=== PATIENT | female | born 1945 | race African-American/Black ===

== ENCOUNTER 2019-09-24 14:15 | Inpatient (IN) | payer MEDICARE, MEDICAID ==
[~2019-09-24] VITALS: Ht 165.1 cm; Wt 59.0 kg
[2019-09-24] VITALS (17 sets, daily range): BP systolic 92–196; BP diastolic 24–125
[2019-09-24] MEDS ORDERED: DILTIAZEM HCL 5MG/ML 5ML VIAL IV ONE ×2 (15:00→18:30)
[2019-09-24 15:18] LABS: HEMATOCRIT. 45.8 % (36.0-48.0); HEMOGLOBIN. 16.1 g/dL (12.0-16.0); MEAN CORPUSCULAR HEMOGLOBIN 30.5 pg (28.0-32.0); MEAN PLATELET VOLUME 7.8 fl (7.4-10.4); PLATELET 341 x1000/uL (130-400); RED BLOOD CELL COUNT 5.26 mill/uL (4.2-5.4); RED CELL DISTRIBUTION WIDTH 15.9 % (11.6-14.6)
[2019-09-24 15:25] LABS: CHLORIDE 101 mEq/L (98-107)
[2019-09-24 15:31] LABS: INR 1.1; PARTIAL THROMBOPLASTIN TIME 23.8 sec (23.4-31.0); PROTHROMBIN TIME 11.6 sec (9.6-11.0)
[2019-09-24 15:42] LABS: CLARITY URINE CLEAR (CLEAR); COLOR URINE YELLOW (YELLOW); KETONES URINE 1+ (NEGATIVE); LEUKOCYTE ESTERASE URINE NEGATIVE (NEGATIVE); NITRITE URINE NEGATIVE (NEGATIVE); OCCULT BLOOD URINE 3+ (NEGATIVE); PH URINE 5.5 (4.5-8.0); PROTEIN URINE 4+ (NEGATIVE); SPECIFIC GRAVITY URINE 1.034 (1.005-1.030)
[2019-09-24] MEDS ORDERED: IOHEXOL-350 100 ML BOTTLE ONE (16:22)
[2019-09-24] MEDS ORDERED: SODIUM CHLORIDE 0.9% 1000ML BAG (SEPSIS BOLUS) IV ONE (16:30)
[2019-09-24] MEDS ORDERED: PIPERACILLIN/TAZ 3.375G PREMIX 50 ML IV ONE (16:30)
[2019-09-24] MEDS ORDERED: VANCOMYCIN 1 G PREMIX 200 ML IV ONE (16:30)
[2019-09-24] MEDS ORDERED: LEVETIRACETAM 500MG PREMIX 100 ML IV ONE (17:00)
[2019-09-24] MEDS ORDERED: NICARDIPINE 100 MG in SODIUM CHLORIDE 0.9% 60 ML IV STA (17:20)
[2019-09-24] MEDS ORDERED: MANNITOL 12.5G (25%) VIAL 50ML IV ONE (17:30)
[2019-09-24] MEDS ORDERED: DEXAMETHASONE 10 MG/ML VIAL IV ONE (17:30)
[2019-09-24 17:53] LABS: PLATELET ESTIMATE NORMAL
[2019-09-24] MEDS ORDERED: NICARDIPINE 100 MG in SODIUM CHLORIDE 0.9% 60 ML IV PRN (18:45)
[2019-09-24] MEDS ORDERED: LORAZEPAM 2MG/ML CPJ IV PRN (19:30)
[2019-09-24] MEDS ORDERED: IPRATROPIUM/ALBUTEROL 0.5-3(2.5)MG/3ML NEB HHN PRN (19:30)
[2019-09-24] MEDS ORDERED: ACETAMINOPHEN 650MG SUPP PR PRN (19:30)
[2019-09-24] MEDS ORDERED: ONDANSETRON HCL 4MG/2ML INJ IV PRN (19:30)
[2019-09-24] MEDS: NICARDIPINE 100 MG in SODIUM CHLORIDE 0.9% 60 ML IV PRN (20:25)
[2019-09-24] MEDS: DEXT 5%/LACTATED RINGERS 1,000 ML IV SCH (20:27)
[2019-09-24] MEDS: MORPHINE SULFATE 2 MG/ML CPJ (NOT FOR IM USE) IV PRN (20:30)
[2019-09-24] MEDS ORDERED: DEXTROSE 50% WATER 50ML SYRINGE IV PRN (20:45)
[2019-09-24] MEDS: BLOOD SUGAR DIAGNOSTIC STRIP TEST SCH (21:05)
[2019-09-24] MEDS: INSULIN LISPRO 100 UNITS/ML SUBCUT SCH (21:09)
[2019-09-24] MEDS: DILTIAZEM HCL 125 MG in DEXT 5% WATER 100 ML IV PRN (21:59)
[2019-09-24] MEDS ORDERED: PIPERACILLIN/TAZOBACTAM 3.375 G in DEXT 5% WATER 100 ML IV SCH (23:00)
[2019-09-24 23:12] LABS: *AMPHETAMINES SCREEN URINE NEGATIVE (NEGATIVE); *BARBITURATES SCREEN URINE NEGATIVE (NEGATIVE); *BENZODIAZEPINES SCREEN URINE NEGATIVE (NEGATIVE); *COCAINE SCREEN URINE NEGATIVE (NEGATIVE); METHADONE URINE SCREEN NEGATIVE (NEGATIVE); OPIATES URINE SCREEN NEGATIVE (NEGATIVE); PHENCYCLIDINE URINE SCREEN NEGATIVE (NEGATIVE)
[2019-09-24 23:13] LABS: CANNABINOID URINE SCREEN NEGATIVE (NEGATIVE)
[2019-09-25] VITALS (94 sets, daily range): BP systolic 59–148; BP diastolic 16–113
[2019-09-25] MEDS ORDERED: VANCOMYCIN 1,750 MG in DEXT 5% WATER 250 ML IV NR ×2
[2019-09-25] MEDS: DEXAMETHASONE 4MG/ML 1ML VIAL IV SCH ×5 (00:33→23:51)
[2019-09-25 05:28] LABS: HEMATOCRIT. 40.9 % (36.0-48.0); HEMOGLOBIN. 14.3 g/dL (12.0-16.0); MEAN CORPUSCULAR HEMOGLOBIN 30.7 pg (28.0-32.0); MEAN CORPUSCULAR VOLUME 88.2 fL (81.0-99.0); MEAN PLATELET VOLUME 8.3 fl (7.4-10.4); PLATELET 251 x1000/uL (130-400); RED BLOOD CELL COUNT 4.64 mill/uL (4.2-5.4); RED CELL DISTRIBUTION WIDTH 16.1 % (11.6-14.6)
[2019-09-25] MEDS: PIPERACILLIN/TAZOBACTAM 3.375 G in DEXT 5% WATER 100 ML IV SCH ×4 (05:30→23:51)
[2019-09-25 05:39] LABS: CHLORIDE 104 mEq/L (98-107)
[2019-09-25 05:55] LABS: CREATINE KINASE MB FRACTION 3.9 ng/mL (0.5-3.6)
[2019-09-25] MEDS: BLOOD SUGAR DIAGNOSTIC STRIP TEST SCH ×4 (06:15→21:06)
[2019-09-25] MEDS: INSULIN LISPRO 100 UNITS/ML SUBCUT SCH ×4 (06:22→21:06)
[2019-09-25 08:22] LABS: PLATELET ESTIMATE NORMAL
[2019-09-25] MEDS: DILTIAZEM HCL 125 MG in DEXT 5% WATER 100 ML IV PRN ×2 (08:25→17:30)
[2019-09-25] MEDS ORDERED: LEVETIRACETAM 500MG PREMIX 100 ML IV SCH (09:00)
[2019-09-25] MEDS ORDERED: CALC-1280 PO (10:07)
[2019-09-25] MEDS ORDERED: METH2.5T PO (10:07)
[2019-09-25] MEDS ORDERED: ATOR10TA69 MT (10:07)
[2019-09-25] MEDS ORDERED: METO-385 MT (10:07)
[2019-09-25] MEDS ORDERED: METF-414 MT (10:07)
[2019-09-25] MEDS ORDERED: DILT240C94 MT (10:07)
[2019-09-25] MEDS ORDERED: APIX2.5T MT (10:07)
[2019-09-25] MEDS ORDERED: BENA40TA9 MT (10:07)
[2019-09-25] MEDS ORDERED: VANCOMYCIN 750 MG PREMIX 150 ML IV SCH (12:00)
[2019-09-25] MEDS ORDERED: VANCOMYCIN 750 MG in DEXT 5% WATER 250 ML IV SCH (12:00)
[2019-09-25] MEDS ORDERED: HUMAN PROTHROMBIN COMPLX (PCC) 500 UNITS VIAL IV SCH (13:00)
[2019-09-25] MEDS ORDERED: BENZONATATE 100MG CAPSULE PO PRN (13:00)
[2019-09-25] MEDS: VANCOMYCIN 1 G PREMIX 200 ML IV SCH (17:52)
[2019-09-25] MEDS: DEXT 5%/LACTATED RINGERS 1,000 ML IV SCH (17:53)
[2019-09-25] MEDS: LEVETIRACETAM 500MG PREMIX 100 ML IV SCH (21:48)
[2019-09-26] VITALS (96 sets, daily range): BP systolic 87–153; BP diastolic 35–103
[2019-09-26] MEDS: DILTIAZEM HCL 125 MG in DEXT 5% WATER 100 ML IV PRN ×2 (03:38→15:08)
[2019-09-26] MEDS: DEXAMETHASONE 4MG/ML 1ML VIAL IV SCH ×2 (05:07→12:25)
[2019-09-26] MEDS: PIPERACILLIN/TAZOBACTAM 3.375 G in DEXT 5% WATER 100 ML IV SCH ×4 (05:07→23:15)
[2019-09-26 05:33] LABS: HEMATOCRIT. 36.3 % (36.0-48.0); HEMOGLOBIN. 12.8 g/dL (12.0-16.0); MEAN CORPUSCULAR HEMOGLOBIN 30.7 pg (28.0-32.0); MEAN CORPUSCULAR VOLUME 87.3 fL (81.0-99.0); PLATELET 236 x1000/uL (130-400); RED BLOOD CELL COUNT 4.16 mill/uL (4.2-5.4); RED CELL DISTRIBUTION WIDTH 15.9 % (11.6-14.6)
[2019-09-26 05:43] LABS: CHLORIDE 105 mEq/L (98-107)
[2019-09-26 06:12] LABS: INR 0.9; PROTHROMBIN TIME 10.1 sec (9.6-11.0)
[2019-09-26] MEDS: BLOOD SUGAR DIAGNOSTIC STRIP TEST SCH ×4 (06:27→20:59)
[2019-09-26] MEDS: INSULIN LISPRO 100 UNITS/ML SUBCUT SCH ×4 (06:27→20:59)
[2019-09-26] MEDS: MORPHINE SULFATE 2 MG/ML CPJ (NOT FOR IM USE) IV PRN (06:27)
[2019-09-26 07:24] LABS: PLATELET ESTIMATE NORMAL
[2019-09-26] MEDS: LEVETIRACETAM 500MG PREMIX 100 ML IV SCH ×2 (07:56→20:59)
[2019-09-26] MEDS: VANCOMYCIN 1 G PREMIX 200 ML IV SCH (12:25)
[2019-09-26] MEDS: DEXT 5%/LACTATED RINGERS 1,000 ML IV SCH ×2 (12:26→20:22)
[2019-09-26] MEDS: INSULIN GLARGINE UD 100 UNITS/ML SYR SUBCUT SCH (21:00)
[2019-09-27] VITALS (99 sets, daily range): BP systolic 75–172; BP diastolic 20–126
[2019-09-27] MEDS: PIPERACILLIN/TAZOBACTAM 3.375 G in DEXT 5% WATER 100 ML IV SCH ×4 (05:01→23:48)
[2019-09-27] MEDS: DILTIAZEM HCL 125 MG in DEXT 5% WATER 100 ML IV PRN ×2 (05:02→15:46)
[2019-09-27 05:13] LABS: HEMATOCRIT. 38.3 % (36.0-48.0); HEMOGLOBIN. 13.5 g/dL (12.0-16.0); MEAN CORPUSCULAR HEMOGLOBIN 30.5 pg (28.0-32.0); MEAN CORPUSCULAR VOLUME 86.4 fL (81.0-99.0); MEAN PLATELET VOLUME 7.8 fl (7.4-10.4); PLATELET 269 x1000/uL (130-400); RED BLOOD CELL COUNT 4.43 mill/uL (4.2-5.4); RED CELL DISTRIBUTION WIDTH 15.8 % (11.6-14.6)
[2019-09-27 05:14] LABS: CHLORIDE 108 mEq/L (98-107)
[2019-09-27] MEDS: INSULIN LISPRO 100 UNITS/ML SUBCUT SCH ×4 (06:00→21:24)
[2019-09-27] MEDS: VANCOMYCIN 1 G PREMIX 200 ML IV SCH (06:00)
[2019-09-27] MEDS: BLOOD SUGAR DIAGNOSTIC STRIP TEST SCH ×4 (06:00→21:19)
[2019-09-27 07:12] LABS: PLATELET ESTIMATE NORMAL
[2019-09-27] MEDS: LEVETIRACETAM 500MG PREMIX 100 ML IV SCH ×2 (08:34→21:22)
[2019-09-27] MEDS ORDERED: DORZ10DR9 BOTHEYE (08:51)
[2019-09-27] MEDS ORDERED: BRIN8DRO BOTHEYE (08:51)
[2019-09-27] MEDS ORDERED: LATA2.5D2 BOTHEYE (08:51)
[2019-09-27] MEDS: INSULIN GLARGINE UD 100 UNITS/ML SYR SUBCUT SCH ×2 (10:43→21:25)
[2019-09-27] MEDS ORDERED: PRED5DRO22 LEFTEYE (13:44)
[2019-09-27] MEDS ORDERED: POTASSIUM CHLORIDE INJ 40 MEQ in DEXT 5% WATER 250 ML IV NR (14:00)
[2019-09-27] MEDS: PREDNISOLONE ACETATE 1% OPHTH DROPS 5ML LEFTEYE SCH (19:47)
[2019-09-27] MEDS ORDERED: METOPROLOL TARTRATE 25MG TABLET ONE (21:11)
[2019-09-27] MEDS: LATANOPROST 0.005% OPHTH DROPS 2.5ML BOTHEYE SCH (21:21)
[2019-09-27] MEDS: DORZOLAM/TIMOLOL 2.23/0.68% OPHTH DROPS 10ML BOTHEYE SCH (21:21)
[2019-09-27] MEDS: BRIMONIDINE 0.2% OPHTH DROPS 5ML EACHEYE SCH (21:21)
[2019-09-27] MEDS: NICARDIPINE 100 MG in SODIUM CHLORIDE 0.9% 60 ML IV PRN (21:26)
[2019-09-27] MEDS: DEXT 5%/LACTATED RINGERS 1,000 ML IV SCH (21:42)
[2019-09-27] MEDS: VANCOMYCIN 1,000 MG in DEXT 5% WATER 250 ML IV SCH (23:49)
[2019-09-28] VITALS (95 sets, daily range): BP systolic 107–155; BP diastolic 42–87
[2019-09-28] MEDS: DILTIAZEM HCL 125 MG in DEXT 5% WATER 100 ML IV PRN (03:44)
[2019-09-28] MEDS: PIPERACILLIN/TAZOBACTAM 3.375 G in DEXT 5% WATER 100 ML IV SCH ×3 (05:03→18:43)
[2019-09-28] MEDS: BRIMONIDINE 0.2% OPHTH DROPS 5ML EACHEYE SCH ×3 (05:03→22:44)
[2019-09-28 05:43] LABS: CHLORIDE 105 mEq/L (98-107)
[2019-09-28] MEDS: BLOOD SUGAR DIAGNOSTIC STRIP TEST SCH ×4 (06:00→21:01)
[2019-09-28] MEDS: INSULIN LISPRO 100 UNITS/ML SUBCUT SCH ×4 (06:01→21:02)
[2019-09-28] MEDS: LEVETIRACETAM 500MG PREMIX 100 ML IV SCH ×2 (09:05→21:00)
[2019-09-28] MEDS: PREDNISOLONE ACETATE 1% OPHTH DROPS 5ML LEFTEYE SCH ×2 (09:06→17:00)
[2019-09-28] MEDS: INSULIN GLARGINE UD 100 UNITS/ML SYR SUBCUT SCH ×2 (09:06→22:45)
[2019-09-28] MEDS: DORZOLAM/TIMOLOL 2.23/0.68% OPHTH DROPS 10ML BOTHEYE SCH ×2 (09:06→21:00)
[2019-09-28] MEDS ORDERED: POTASSIUM CHLORIDE INJ 40 MEQ in DEXT 5% WATER 250 ML IV NR (10:30)
[2019-09-28] MEDS: VANCOMYCIN 1,000 MG in DEXT 5% WATER 250 ML IV SCH ×2 (18:00→19:49)
[2019-09-28] MEDS: NICARDIPINE 100 MG in SODIUM CHLORIDE 0.9% 60 ML IV PRN (18:57)
[2019-09-28] MEDS: LATANOPROST 0.005% OPHTH DROPS 2.5ML BOTHEYE SCH (21:00)
[2019-09-29] VITALS (93 sets, daily range): BP systolic 103–169; BP diastolic 43–92
[2019-09-29 00:57] LABS: HEPATITIS B SURFACE ANTIGEN NEGATIVE
[2019-09-29] MEDS: PIPERACILLIN/TAZOBACTAM 3.375 G in DEXT 5% WATER 100 ML IV SCH ×4 (00:59→18:21)
[2019-09-29] MEDS: DEXT 5%/LACTATED RINGERS 1,000 ML IV SCH (01:00)
[2019-09-29 05:51] LABS: HEMATOCRIT. 45.1 % (36.0-48.0); HEMOGLOBIN. 15.8 g/dL (12.0-16.0); MEAN CORPUSCULAR HEMOGLOBIN 30.2 pg (28.0-32.0); MEAN PLATELET VOLUME 7.6 fl (7.4-10.4); PLATELET 306 x1000/uL (130-400); RED BLOOD CELL COUNT 5.24 mill/uL (4.2-5.4); RED CELL DISTRIBUTION WIDTH 15.2 % (11.6-14.6)
[2019-09-29 05:54] LABS: CHLORIDE 105 mEq/L (98-107)
[2019-09-29] MEDS: NICARDIPINE 100 MG in SODIUM CHLORIDE 0.9% 60 ML IV PRN ×2 (06:32→14:08)
[2019-09-29] MEDS: INSULIN LISPRO 100 UNITS/ML SUBCUT SCH ×4 (06:33→22:42)
[2019-09-29] MEDS: BLOOD SUGAR DIAGNOSTIC STRIP TEST SCH ×4 (06:33→21:00)
[2019-09-29] MEDS: BRIMONIDINE 0.2% OPHTH DROPS 5ML EACHEYE SCH ×3 (06:34→22:42)
[2019-09-29] MEDS: LEVETIRACETAM 500MG PREMIX 100 ML IV SCH ×2 (08:22→22:41)
[2019-09-29] MEDS: PREDNISOLONE ACETATE 1% OPHTH DROPS 5ML LEFTEYE SCH ×2 (08:23→17:00)
[2019-09-29] MEDS: DORZOLAM/TIMOLOL 2.23/0.68% OPHTH DROPS 10ML BOTHEYE SCH ×2 (08:23→22:43)
[2019-09-29 08:56] LABS: PLATELET ESTIMATE NORMAL
[2019-09-29] MEDS: INSULIN GLARGINE UD 100 UNITS/ML SYR SUBCUT SCH ×2 (10:39→22:42)
[2019-09-29] MEDS: VANCOMYCIN 1,000 MG in DEXT 5% WATER 250 ML IV SCH (12:40)
[2019-09-29] MEDS: DILTIAZEM HCL 60MG TABLET NG SCH ×2 (14:57→22:46)
[2019-09-29] MEDS: LATANOPROST 0.005% OPHTH DROPS 2.5ML BOTHEYE SCH (22:43)
[2019-09-30] VITALS (89 sets, daily range): BP systolic 100–182; BP diastolic 36–103
[2019-09-30 05:22] LABS: BASOPHILS % 0.1 % (0.0-2.0); EOSINOPHILS % 1.2 % (0.0-5.0); HEMATOCRIT. 47.1 % (36.0-48.0); HEMOGLOBIN. 16.6 g/dL (12.0-16.0); LYMPHOCYTES % 7.3 % (20.0-50.0); MEAN CORPUSCULAR HEMOGLOBIN 30.1 pg (28.0-32.0); MEAN CORPUSCULAR VOLUME 85.4 fL (81.0-99.0); MEAN PLATELET VOLUME 7.5 fl (7.4-10.4); MONOCYTES % 10.6 % (2.0-8.0); NEUTROPHILS % 80.8 % (40.0-76.0); PLATELET 317 x1000/uL (130-400); RED BLOOD CELL COUNT 5.51 mill/uL (4.2-5.4); RED CELL DISTRIBUTION WIDTH 15.6 % (11.6-14.6)
[2019-09-30 05:47] LABS: CHLORIDE 105 mEq/L (98-107)
[2019-09-30] MEDS: BLOOD SUGAR DIAGNOSTIC STRIP TEST SCH ×4 (06:11→21:13)
[2019-09-30] MEDS: DEXT 5%/LACTATED RINGERS 1,000 ML IV SCH ×3 (06:18→23:40)
[2019-09-30] MEDS: BRIMONIDINE 0.2% OPHTH DROPS 5ML EACHEYE SCH ×3 (06:19→21:15)
[2019-09-30] MEDS: INSULIN LISPRO 100 UNITS/ML SUBCUT SCH ×4 (06:19→21:00)
[2019-09-30] MEDS: DILTIAZEM HCL 60MG TABLET NG SCH ×3 (06:20→21:15)
[2019-09-30] MEDS: PREDNISOLONE ACETATE 1% OPHTH DROPS 5ML LEFTEYE SCH ×2 (09:14→18:59)
[2019-09-30] MEDS: LEVETIRACETAM 500MG PREMIX 100 ML IV SCH ×2 (09:14→21:14)
[2019-09-30] MEDS: INSULIN GLARGINE UD 100 UNITS/ML SYR SUBCUT SCH ×2 (09:15→22:57)
[2019-09-30] MEDS: DORZOLAM/TIMOLOL 2.23/0.68% OPHTH DROPS 10ML BOTHEYE SCH ×2 (09:16→21:15)
[2019-09-30] MEDS: LATANOPROST 0.005% OPHTH DROPS 2.5ML BOTHEYE SCH (21:14)
[2019-09-30] MEDS: DILTIAZEM HCL 5MG/ML 5ML VIAL IV PRN (23:40)
[2019-10-01] VITALS (23 sets, daily range): BP systolic 108–149; BP diastolic 50–102
[2019-10-01 05:33] LABS: BASOPHILS % 0.2 % (0.0-2.0); EOSINOPHILS % 1.5 % (0.0-5.0); HEMATOCRIT. 45.9 % (36.0-48.0); HEMOGLOBIN. 16.2 g/dL (12.0-16.0); LYMPHOCYTES % 8.6 % (20.0-50.0); MEAN CORPUSCULAR HEMOGLOBIN 30.3 pg (28.0-32.0); MEAN CORPUSCULAR VOLUME 85.9 fL (81.0-99.0); MEAN PLATELET VOLUME 7.2 fl (7.4-10.4); MONOCYTES % 11.7 % (2.0-8.0); PLATELET 372 x1000/uL (130-400); RED BLOOD CELL COUNT 5.35 mill/uL (4.2-5.4); RED CELL DISTRIBUTION WIDTH 15.8 % (11.6-14.6)
[2019-10-01] MEDS: BLOOD SUGAR DIAGNOSTIC STRIP TEST SCH ×4 (05:43→21:49)
[2019-10-01] MEDS: BRIMONIDINE 0.2% OPHTH DROPS 5ML EACHEYE SCH ×3 (05:49→21:51)
[2019-10-01] MEDS: DILTIAZEM HCL 60MG TABLET NG SCH ×3 (05:49→21:35)
[2019-10-01 05:50] LABS: CHLORIDE 105 mEq/L (98-107)
[2019-10-01] MEDS: INSULIN LISPRO 100 UNITS/ML SUBCUT SCH ×4 (06:14→21:00)
[2019-10-01] MEDS ORDERED: BARIUM SULFATE 176 GM SUSP.RECON ONE (09:02)
[2019-10-01] MEDS: PREDNISOLONE ACETATE 1% OPHTH DROPS 5ML LEFTEYE SCH ×2 (10:16→19:06)
[2019-10-01] MEDS: DORZOLAM/TIMOLOL 2.23/0.68% OPHTH DROPS 10ML BOTHEYE SCH ×2 (10:16→21:50)
[2019-10-01] MEDS: LEVETIRACETAM 500MG PREMIX 100 ML IV SCH ×2 (10:17→21:33)
[2019-10-01] MEDS: INSULIN GLARGINE UD 100 UNITS/ML SYR SUBCUT SCH ×2 (10:31→21:52)
[2019-10-01] MEDS ORDERED: POTASSIUM CHLORIDE 20MEQ/PACKET PO NR (19:30)
[2019-10-01] MEDS: LATANOPROST 0.005% OPHTH DROPS 2.5ML BOTHEYE SCH (21:50)
[2019-10-01] MEDS: DEXT 5%/LACTATED RINGERS 1,000 ML IV SCH (21:53)
[2019-10-02] VITALS (18 sets, daily range): BP systolic 98–158; BP diastolic 46–103
[2019-10-02] MEDS: DILTIAZEM HCL 5MG/ML 5ML VIAL IV PRN ×2 (04:53→08:42)
[2019-10-02 05:57] LABS: CHLORIDE 108 mEq/L (98-107)
[2019-10-02 06:16] LABS: HEMATOCRIT. 42.3 % (36.0-48.0); HEMOGLOBIN. 14.9 g/dL (12.0-16.0); MEAN CORPUSCULAR HEMOGLOBIN 30.5 pg (28.0-32.0); MEAN CORPUSCULAR VOLUME 86.5 fL (81.0-99.0); MEAN PLATELET VOLUME 7.3 fl (7.4-10.4); PLATELET 382 x1000/uL (130-400); RED BLOOD CELL COUNT 4.89 mill/uL (4.2-5.4); RED CELL DISTRIBUTION WIDTH 15.3 % (11.6-14.6)
[2019-10-02] MEDS: DILTIAZEM HCL 60MG TABLET NG SCH (06:44)
[2019-10-02] MEDS: BRIMONIDINE 0.2% OPHTH DROPS 5ML EACHEYE SCH ×3 (06:44→20:40)
[2019-10-02] MEDS: BLOOD SUGAR DIAGNOSTIC STRIP TEST SCH ×4 (07:30→20:30)
[2019-10-02] MEDS: INSULIN LISPRO 100 UNITS/ML SUBCUT SCH ×4 (08:00→20:35)
[2019-10-02] MEDS: LEVETIRACETAM 500MG PREMIX 100 ML IV SCH ×2 (08:49→20:30)
[2019-10-02] MEDS: DORZOLAM/TIMOLOL 2.23/0.68% OPHTH DROPS 10ML BOTHEYE SCH ×2 (08:50→20:39)
[2019-10-02] MEDS: PREDNISOLONE ACETATE 1% OPHTH DROPS 5ML LEFTEYE SCH ×2 (08:50→17:23)
[2019-10-02 09:00] LABS: PLATELET ESTIMATE NORMAL
[2019-10-02] MEDS: INSULIN GLARGINE UD 100 UNITS/ML SYR SUBCUT SCH ×2 (10:52→20:57)
[2019-10-02] MEDS ORDERED: LIDOCAINE HCL 1% 20ML VIAL (Pyxis) INJ ONE (12:59)
[2019-10-02] MEDS: DILTIAZEM HCL 90MG TABLET NG SCH ×2 (14:13→20:56)
[2019-10-02] MEDS: LATANOPROST 0.005% OPHTH DROPS 2.5ML BOTHEYE SCH (20:39)
[2019-10-03] VITALS (13 sets, daily range): BP systolic 120–153; BP diastolic 62–88
[2019-10-03] MEDS: DEXT 5%/LACTATED RINGERS 1,000 ML IV SCH (02:27)
[2019-10-03] MEDS: BRIMONIDINE 0.2% OPHTH DROPS 5ML EACHEYE SCH ×3 (05:02→21:44)
[2019-10-03] MEDS: DILTIAZEM HCL 90MG TABLET NG SCH ×3 (05:03→17:46)
[2019-10-03 06:44] LABS: CHLORIDE 108 mEq/L (98-107)
[2019-10-03 07:19] LABS: BASOPHILS % 0.3 % (0.0-2.0); EOSINOPHILS % 2.4 % (0.0-5.0); HEMATOCRIT. 43.3 % (36.0-48.0); HEMOGLOBIN. 15.2 g/dL (12.0-16.0); LYMPHOCYTES % 11.1 % (20.0-50.0); MEAN CORPUSCULAR HEMOGLOBIN 30.4 pg (28.0-32.0); MEAN CORPUSCULAR VOLUME 86.2 fL (81.0-99.0); MEAN PLATELET VOLUME 7.8 fl (7.4-10.4); MONOCYTES % 12.7 % (2.0-8.0); NEUTROPHILS % 73.5 % (40.0-76.0); PLATELET 324 x1000/uL (130-400); RED BLOOD CELL COUNT 5.02 mill/uL (4.2-5.4); RED CELL DISTRIBUTION WIDTH 15.7 % (11.6-14.6)
[2019-10-03] MEDS: BLOOD SUGAR DIAGNOSTIC STRIP TEST SCH ×4 (07:59→21:45)
[2019-10-03] MEDS: INSULIN LISPRO 100 UNITS/ML SUBCUT SCH ×4 (08:00→21:59)
[2019-10-03] MEDS: LEVETIRACETAM 500MG PREMIX 100 ML IV SCH ×2 (08:11→21:52)
[2019-10-03] MEDS: PREDNISOLONE ACETATE 1% OPHTH DROPS 5ML LEFTEYE SCH ×2 (08:12→17:46)
[2019-10-03] MEDS: DORZOLAM/TIMOLOL 2.23/0.68% OPHTH DROPS 10ML BOTHEYE SCH ×2 (08:12→21:44)
[2019-10-03] MEDS ORDERED: DILTIAZEM HCL 30MG TABLET PO NR (09:28)
[2019-10-03] MEDS: INSULIN GLARGINE UD 100 UNITS/ML SYR SUBCUT SCH ×2 (09:55→21:46)
[2019-10-03] MEDS: ACETAMINOPHEN 325MG TABLET PO PRN (12:42)
[2019-10-03] MEDS ORDERED: METOPROLOL TARTRATE 25MG TABLET PO SCH (21:00)
[2019-10-03] MEDS: LATANOPROST 0.005% OPHTH DROPS 2.5ML BOTHEYE SCH (21:44)
[2019-10-04] VITALS (12 sets, daily range): BP systolic 116–172; BP diastolic 59–134
[2019-10-04] MEDS: DEXT 5%/LACTATED RINGERS 1,000 ML IV SCH ×2 (01:18→21:38)
[2019-10-04] MEDS: DILTIAZEM HCL 90MG TABLET NG SCH ×4 (01:29→17:26)
[2019-10-04] MEDS: BRIMONIDINE 0.2% OPHTH DROPS 5ML EACHEYE SCH ×3 (05:22→21:39)
[2019-10-04 06:39] LABS: CHLORIDE 108 mEq/L (98-107)
[2019-10-04 07:28] LABS: BASOPHILS % 0.2 % (0.0-2.0); HEMATOCRIT. 35.8 % (36.0-48.0); HEMOGLOBIN. 12.8 g/dL (12.0-16.0); LYMPHOCYTES % 8.4 % (20.0-50.0); MEAN CORPUSCULAR HEMOGLOBIN 30.5 pg (28.0-32.0); MEAN CORPUSCULAR VOLUME 85.2 fL (81.0-99.0); MEAN PLATELET VOLUME 7.8 fl (7.4-10.4); MONOCYTES % 11.4 % (2.0-8.0); PLATELET 294 x1000/uL (130-400); RED CELL DISTRIBUTION WIDTH 15.9 % (11.6-14.6)
[2019-10-04] MEDS: INSULIN LISPRO 100 UNITS/ML SUBCUT SCH ×4 (08:00→21:41)
[2019-10-04] MEDS: DORZOLAM/TIMOLOL 2.23/0.68% OPHTH DROPS 10ML BOTHEYE SCH ×2 (09:00→21:40)
[2019-10-04] MEDS: LEVETIRACETAM 500MG PREMIX 100 ML IV SCH ×2 (09:18→21:38)
[2019-10-04] MEDS: METOPROLOL TARTRATE 25MG TABLET PO SCH ×2 (09:20→21:37)
[2019-10-04] MEDS: PREDNISOLONE ACETATE 1% OPHTH DROPS 5ML LEFTEYE SCH ×2 (09:21→18:16)
[2019-10-04] MEDS: INSULIN GLARGINE UD 100 UNITS/ML SYR SUBCUT SCH ×2 (09:22→21:42)
[2019-10-04] MEDS: BLOOD SUGAR DIAGNOSTIC STRIP TEST SCH ×4 (09:23→21:38)
[2019-10-04] MEDS: HYDRALAZINE HCL 25MG TABLET PO SCH ×2 (14:00→21:37)
[2019-10-04] MEDS: LATANOPROST 0.005% OPHTH DROPS 2.5ML BOTHEYE SCH (21:39)
[2019-10-05] VITALS (13 sets, daily range): BP systolic 94–137; BP diastolic 50–86
[2019-10-05] MEDS: DILTIAZEM HCL 90MG TABLET NG SCH ×4 (00:04→18:24)
[2019-10-05] MEDS: HYDRALAZINE HCL 25MG TABLET PO SCH ×2 (05:46→14:08)
[2019-10-05] MEDS: BRIMONIDINE 0.2% OPHTH DROPS 5ML EACHEYE SCH ×2 (05:46→14:08)
[2019-10-05 07:35] LABS: BASOPHILS % 0.2 % (0.0-2.0); HEMATOCRIT. 33.9 % (36.0-48.0); HEMOGLOBIN. 12.1 g/dL (12.0-16.0); LYMPHOCYTES % 8.4 % (20.0-50.0); MEAN CORPUSCULAR HEMOGLOBIN 30.5 pg (28.0-32.0); MEAN CORPUSCULAR VOLUME 85.4 fL (81.0-99.0); MEAN PLATELET VOLUME 7.3 fl (7.4-10.4); MONOCYTES % 9.4 % (2.0-8.0); PLATELET 327 x1000/uL (130-400); RED BLOOD CELL COUNT 3.97 mill/uL (4.2-5.4); RED CELL DISTRIBUTION WIDTH 15.5 % (11.6-14.6)
[2019-10-05 07:58] LABS: CHLORIDE 109 mEq/L (98-107)
[2019-10-05] MEDS: BLOOD SUGAR DIAGNOSTIC STRIP TEST SCH ×4 (08:00→20:03)
[2019-10-05] MEDS: LEVETIRACETAM 500MG PREMIX 100 ML IV SCH ×2 (09:24→20:11)
[2019-10-05] MEDS: DORZOLAM/TIMOLOL 2.23/0.68% OPHTH DROPS 10ML BOTHEYE SCH ×2 (09:27→20:15)
[2019-10-05] MEDS: PREDNISOLONE ACETATE 1% OPHTH DROPS 5ML LEFTEYE SCH ×2 (09:27→18:26)
[2019-10-05] MEDS: INSULIN GLARGINE UD 100 UNITS/ML SYR SUBCUT SCH (09:43)
[2019-10-05] MEDS: INSULIN LISPRO 100 UNITS/ML SUBCUT SCH ×4 (09:47→20:17)
[2019-10-05] MEDS: METOPROLOL TARTRATE 25MG TABLET PO SCH ×2 (10:07→20:15)
[2019-10-05] MEDS ORDERED: POLYETHYLENE GLYCOL 3350 (17GM) 1 DOSE PACK PO NR (10:45)
[2019-10-05] MEDS: DEXT 5%/LACTATED RINGERS 1,000 ML IV SCH (16:30)
[2019-10-05] MEDS: ACETAMINOPHEN 325MG TABLET PO PRN (20:14)
[2019-10-05] MEDS: LATANOPROST 0.005% OPHTH DROPS 2.5ML BOTHEYE SCH (20:16)
== END 2019-10-05 22:30 | DRG 64 ==
LOC: ER 14:15 → EDBD 17:22 → MICUSO 17:22 → ENRESERV 18:31 → 5EST 10-01 11:10
PROVIDERS: ADMIT Internal Medicine; ATTEND Internal Medicine
PROC: 02HV33Z Insertion of Infusion Device into Superior Vena Cava, Percutaneous Approach (ICD-10-PCS; principal; 2019-10-02)
PROC: B548ZZA Ultrasonography of Superior Vena Cava, Guidance (ICD-10-PCS; 2019-10-02)
DX: I63.511 Cerebral infarction due to unspecified occlusion or stenosis of right middle cerebral artery (principal); I60.9 Nontraumatic subarachnoid hemorrhage, unspecified; G93.6 Cerebral edema; I48.20 Chronic atrial fibrillation, unspecified; G93.40 Encephalopathy, unspecified; E87.2 Acidosis; G81.94 Hemiplegia, unspecified affecting left nondominant side; I48.92 Unspecified atrial flutter; I10 Essential (primary) hypertension; E78.5 Hyperlipidemia, unspecified; E11.9 Type 2 diabetes mellitus without complications; R74.0 Nonspecific elevation of levels of transaminase and lactic acid dehydrogenase [LDH]; R13.10 Dysphagia, unspecified; R47.01 Aphasia; E78.00 Pure hypercholesterolemia, unspecified; I48.0 Paroxysmal atrial fibrillation; M19.90 Unspecified osteoarthritis, unspecified site; M06.9 Rheumatoid arthritis, unspecified; I25.10 Atherosclerotic heart disease of native coronary artery without angina pectoris; Z79.899 Other long term (current) drug therapy; Z79.01 Long term (current) use of anticoagulants
CPT/HCPCS: 36415; 70496; 70498; 71045; 73030; 73521; 74230; 76937; 80048; 80053; 80061; 80076; 80202; 80305; 81003; 82550; 82553; 82962; 83036; 83605; 83880; 84484; 85025; 92523; 92610; 92611; 93005; 93306; 93970; 97110; 97112; 97163; 97166; 97530; 99291; C1725; C9132; J1100; J1815; J1953; J2150; J2270; J2543; J3370; J3480; J3490; J7030; J7050; J7060; Q9967

== ENCOUNTER 2019-10-05 22:07 | Inpatient (IN) | payer MEDICARE, MEDICAID ==
[~2019-10-05] VITALS: Ht 165.1 cm; Wt 59.0 kg
[~2019-10-05 22:07] MED LIST: APIX2.5T MT; ATOR10TA69 MT; BENA40TA9 MT; BRIN8DRO BOTHEYE; CALC-1280 PO; DILT240C94 MT; DORZ10DR9 BOTHEYE; LATA2.5D2 BOTHEYE; METF-414 MT; METH2.5T PO; METO-385 MT; PRED5DRO22 LEFTEYE
[2019-10-05 22:30] VITALS: BP 132/56
[2019-10-05] MEDS ORDERED: BENZONATATE 100MG CAPSULE PO PRN (23:45)
[2019-10-05] MEDS ORDERED: ACETAMINOPHEN 650MG SUPP PR PRN (23:45)
[2019-10-05] MEDS ORDERED: ONDANSETRON HCL 4MG/2ML INJ IV PRN (23:45)
[2019-10-05] MEDS ORDERED: IPRATROPIUM/ALBUTEROL 0.5-3(2.5)MG/3ML NEB HHN PRN (23:45)
[2019-10-05] MEDS: BRIMONIDINE 0.2% OPHTH DROPS 5ML EACHEYE SCH (23:57)
[2019-10-05] MEDS: DILTIAZEM HCL 90MG TABLET PO SCH (23:58)
[2019-10-05] MEDS: HYDRALAZINE HCL 25MG TABLET PO SCH (23:58)
[2019-10-06] MEDS ORDERED: DILTIAZEM HCL 90MG TABLET PO SCH
[2019-10-06] MEDS ORDERED: INSULIN GLARGINE UD 100 UNITS/ML SYR SUBCUT SCH
[2019-10-06] MEDS ORDERED: DEXTROSE 50% WATER 50ML SYRINGE IV PRN
[2019-10-06] MEDS: DEXT 5%/LACTATED RINGERS 1,000 ML IV SCH ×2 (00:12→22:20)
[2019-10-06] MEDS ORDERED: NON FORMULARY PATIENT HOME MED XX PRN (00:45)
[2019-10-06] MEDS ORDERED: [UNRECOGNIZED DRUG - OTHER] IV PRN (02:00)
[2019-10-06] MEDS ORDERED: HEPARIN 100 UNIT/ML IV PRN (02:00)
[2019-10-06] MEDS: BRIMONIDINE 0.2% OPHTH DROPS 5ML EACHEYE SCH ×3 (05:30→22:05)
[2019-10-06] MEDS: DILTIAZEM HCL 90MG TABLET PO SCH ×4 (05:30→23:40)
[2019-10-06] MEDS: HYDRALAZINE HCL 25MG TABLET PO SCH ×3 (05:30→22:05)
[2019-10-06] MEDS: BLOOD SUGAR DIAGNOSTIC STRIP TEST SCH ×4 (06:33→21:58)
[2019-10-06 06:57] LABS: CHLORIDE 108 mEq/L (98-107)
[2019-10-06 06:57] LABS: BASOPHILS % 0.5 % (0.0-2.0); HEMATOCRIT. 33.3 % (36.0-48.0); HEMOGLOBIN. 11.8 g/dL (12.0-16.0); LYMPHOCYTES % 9.8 % (20.0-50.0); MEAN CORPUSCULAR HEMOGLOBIN 30.2 pg (28.0-32.0); MEAN CORPUSCULAR VOLUME 84.9 fL (81.0-99.0); MEAN PLATELET VOLUME 7.1 fl (7.4-10.4); MONOCYTES % 7.7 % (2.0-8.0); PLATELET 340 x1000/uL (130-400); RED BLOOD CELL COUNT 3.92 mill/uL (4.2-5.4)
[2019-10-06 08:00] VITALS: BP 115/52
[2019-10-06] MEDS: ACETAMINOPHEN 325MG TABLET PO PRN ×2 (08:55→20:11)
[2019-10-06] MEDS: METOPROLOL TARTRATE 25MG TABLET PO SCH ×2 (08:55→20:11)
[2019-10-06] MEDS: PREDNISOLONE ACETATE 1% OPHTH DROPS 5ML LEFTEYE SCH ×2 (08:56→17:51)
[2019-10-06] MEDS: DORZOLAM/TIMOLOL 2.23/0.68% OPHTH DROPS 10ML BOTHEYE SCH ×2 (08:56→20:10)
[2019-10-06] MEDS: LEVETIRACETAM 500MG PREMIX 100 ML IV SCH ×2 (08:56→20:30)
[2019-10-06] MEDS: INSULIN LISPRO 100 UNITS/ML SUBCUT SCH ×4 (09:27→22:09)
[2019-10-06] MEDS: INSULIN GLARGINE UD 100 UNITS/ML SYR SUBCUT SCH ×2 (09:37→22:09)
[2019-10-06 20:00] VITALS: BP 150/72
[2019-10-06] MEDS: LATANOPROST 0.005% OPHTH DROPS 2.5ML BOTHEYE SCH (20:10)
[2019-10-06 20:49] LABS: CLARITY URINE CLOUDY (CLEAR); COLOR URINE RED (YELLOW); KETONES URINE NEGATIVE (NEGATIVE); LEUKOCYTE ESTERASE URINE 2+ (NEGATIVE); NITRITE URINE NEGATIVE (NEGATIVE); OCCULT BLOOD URINE 3+ (NEGATIVE); PH URINE 7.5 (4.5-8.0); PROTEIN URINE 1+ (NEGATIVE); SPECIFIC GRAVITY URINE 1.014 (1.005-1.030)
[2019-10-07] MEDS: BRIMONIDINE 0.2% OPHTH DROPS 5ML EACHEYE SCH ×3 (06:38→21:36)
[2019-10-07] MEDS: DILTIAZEM HCL 90MG TABLET PO SCH ×3 (06:39→17:05)
[2019-10-07] MEDS: HYDRALAZINE HCL 25MG TABLET PO SCH ×3 (06:39→22:00)
[2019-10-07] MEDS: BLOOD SUGAR DIAGNOSTIC STRIP TEST SCH ×4 (06:39→21:54)
[2019-10-07] MEDS: INSULIN LISPRO 100 UNITS/ML SUBCUT SCH ×4 (06:52→22:28)
[2019-10-07 06:57] LABS: BASOPHILS % 0.4 % (0.0-2.0); EOSINOPHILS % 1.1 % (0.0-5.0); HEMATOCRIT. 38.7 % (36.0-48.0); HEMOGLOBIN. 13.6 g/dL (12.0-16.0); LYMPHOCYTES % 9.7 % (20.0-50.0); MEAN CORPUSCULAR HEMOGLOBIN 30.1 pg (28.0-32.0); MEAN CORPUSCULAR VOLUME 85.5 fL (81.0-99.0); MEAN PLATELET VOLUME 7.6 fl (7.4-10.4); MONOCYTES % 5.5 % (2.0-8.0); NEUTROPHILS % 83.3 % (40.0-76.0); PLATELET 354 x1000/uL (130-400); RED BLOOD CELL COUNT 4.52 mill/uL (4.2-5.4); RED CELL DISTRIBUTION WIDTH 16.1 % (11.6-14.6)
[2019-10-07 08:04] VITALS: BP 114/52
[2019-10-07 08:11] LABS: VITAMIN B12 SERUM 1232 pg/mL (211-911)
[2019-10-07 08:13] LABS: CHLORIDE 108 mEq/L (98-107)
[2019-10-07 08:19] LABS: PHOSPHORUS 3.3 mg/dL (2.5-4.9); TOTAL IRON BINDING CAPACITY 302 ug/dL (250-450)
[2019-10-07 08:22] LABS: CREATINE KINASE 55 IU/L (26-192)
[2019-10-07] MEDS: LEVETIRACETAM 500MG PREMIX 100 ML IV SCH ×2 (09:14→21:53)
[2019-10-07] MEDS: METOPROLOL TARTRATE 25MG TABLET PO SCH ×2 (09:14→21:51)
[2019-10-07] MEDS: DORZOLAM/TIMOLOL 2.23/0.68% OPHTH DROPS 10ML BOTHEYE SCH ×2 (09:15→21:36)
[2019-10-07] MEDS: PREDNISOLONE ACETATE 1% OPHTH DROPS 5ML LEFTEYE SCH ×2 (09:15→17:04)
[2019-10-07] MEDS: INSULIN GLARGINE UD 100 UNITS/ML SYR SUBCUT SCH ×2 (10:24→22:55)
[2019-10-07 13:33] LABS: FERRITIN 375 ng/mL (10-291)
[2019-10-07] MEDS: DEXT 5%/LACTATED RINGERS 1,000 ML IV SCH (16:02)
[2019-10-07 20:00] VITALS: BP 127/64
[2019-10-07] MEDS: LATANOPROST 0.005% OPHTH DROPS 2.5ML BOTHEYE SCH (21:35)
[2019-10-07] MEDS: ACETAMINOPHEN 325MG TABLET PO PRN (22:56)
[2019-10-08] MEDS: DILTIAZEM HCL 90MG TABLET PO SCH ×4 (01:37→17:52)
[2019-10-08] MEDS: BRIMONIDINE 0.2% OPHTH DROPS 5ML EACHEYE SCH ×3 (05:42→22:42)
[2019-10-08] MEDS: BLOOD SUGAR DIAGNOSTIC STRIP TEST SCH ×4 (05:43→21:00)
[2019-10-08] MEDS: HYDRALAZINE HCL 25MG TABLET PO SCH ×3 (05:43→22:00)
[2019-10-08] MEDS: INSULIN LISPRO 100 UNITS/ML SUBCUT SCH ×4 (05:43→23:08)
[2019-10-08 08:00] VITALS: BP 145/63
[2019-10-08] MEDS: PREDNISOLONE ACETATE 1% OPHTH DROPS 5ML LEFTEYE SCH ×2 (09:04→17:51)
[2019-10-08] MEDS: DORZOLAM/TIMOLOL 2.23/0.68% OPHTH DROPS 10ML BOTHEYE SCH ×2 (09:04→22:43)
[2019-10-08] MEDS: METOPROLOL TARTRATE 25MG TABLET PO SCH ×2 (09:04→22:03)
[2019-10-08] MEDS: LEVETIRACETAM 500MG PREMIX 100 ML IV SCH ×2 (09:05→22:05)
[2019-10-08] MEDS: ACETAMINOPHEN 325MG TABLET PO PRN (09:10)
[2019-10-08] MEDS: INSULIN GLARGINE UD 100 UNITS/ML SYR SUBCUT SCH ×2 (10:56→23:06)
[2019-10-08] MEDS: DEXT 5%/LACTATED RINGERS 1,000 ML IV SCH (12:16)
[2019-10-08 12:25] VITALS: BP 116/46
[2019-10-08 15:30] VITALS: BP 128/65
[2019-10-08 20:00] VITALS: BP 134/62
[2019-10-08] MEDS: CEFTRIAXONE 1 G PREMIX 50 ML IV SCH (22:14)
[2019-10-08] MEDS: LATANOPROST 0.005% OPHTH DROPS 2.5ML BOTHEYE SCH (22:42)
[2019-10-09] MEDS: DILTIAZEM HCL 90MG TABLET PO SCH ×5 (00:52→23:07)
[2019-10-09] MEDS: BRIMONIDINE 0.2% OPHTH DROPS 5ML EACHEYE SCH ×3 (06:06→21:47)
[2019-10-09] MEDS: BLOOD SUGAR DIAGNOSTIC STRIP TEST SCH ×4 (06:07→20:32)
[2019-10-09] MEDS: HYDRALAZINE HCL 25MG TABLET PO SCH ×3 (06:40→21:52)
[2019-10-09] MEDS: DEXT 5%/LACTATED RINGERS 1,000 ML IV SCH (06:40)
[2019-10-09 07:01] LABS: HEMOGLOBIN. 12.5 g/dL (12.0-16.0); MEAN CORPUSCULAR HEMOGLOBIN 30.4 pg (28.0-32.0); MEAN CORPUSCULAR VOLUME 84.8 fL (81.0-99.0); MEAN PLATELET VOLUME 6.9 fl (7.4-10.4); PLATELET 327 x1000/uL (130-400); RED BLOOD CELL COUNT 4.13 mill/uL (4.2-5.4); RED CELL DISTRIBUTION WIDTH 16.2 % (11.6-14.6)
[2019-10-09 07:12] LABS: CHLORIDE 106 mEq/L (98-107)
[2019-10-09] MEDS: LEVETIRACETAM 500MG PREMIX 100 ML IV SCH ×2 (07:41→20:31)
[2019-10-09] MEDS: PREDNISOLONE ACETATE 1% OPHTH DROPS 5ML LEFTEYE SCH ×2 (08:42→17:19)
[2019-10-09] MEDS: INSULIN LISPRO 100 UNITS/ML SUBCUT SCH ×4 (08:43→20:46)
[2019-10-09] MEDS: DORZOLAM/TIMOLOL 2.23/0.68% OPHTH DROPS 10ML BOTHEYE SCH ×2 (08:43→20:31)
[2019-10-09 09:03] VITALS: BP 119/66
[2019-10-09] MEDS: METOPROLOL TARTRATE 25MG TABLET PO SCH ×2 (10:31→20:32)
[2019-10-09] MEDS: ACETAMINOPHEN 325MG TABLET PO PRN ×2 (10:31→20:46)
[2019-10-09] MEDS: INSULIN GLARGINE UD 100 UNITS/ML SYR SUBCUT SCH ×2 (10:44→21:53)
[2019-10-09 19:42] LABS: PLATELET ESTIMATE NORMAL
[2019-10-09 20:00] VITALS: BP 158/67
[2019-10-09] MEDS: LATANOPROST 0.005% OPHTH DROPS 2.5ML BOTHEYE SCH (20:31)
[2019-10-09] MEDS: CEFTRIAXONE 1 G PREMIX 50 ML IV SCH (22:37)
[2019-10-10] MEDS: DEXT 5%/LACTATED RINGERS 1,000 ML IV SCH (03:17)
[2019-10-10] MEDS: BRIMONIDINE 0.2% OPHTH DROPS 5ML EACHEYE SCH ×3 (05:31→21:19)
[2019-10-10] MEDS: BLOOD SUGAR DIAGNOSTIC STRIP TEST SCH ×4 (05:32→21:18)
[2019-10-10] MEDS: DILTIAZEM HCL 90MG TABLET PO SCH ×4 (05:32→23:30)
[2019-10-10] MEDS: HYDRALAZINE HCL 25MG TABLET PO SCH ×3 (05:32→21:19)
[2019-10-10 05:41] LABS: CHLORIDE 108 mEq/L (98-107)
[2019-10-10] MEDS: INSULIN LISPRO 100 UNITS/ML SUBCUT SCH ×4 (05:42→21:00)
[2019-10-10 06:51] LABS: BASOPHILS % 0.5 % (0.0-2.0); EOSINOPHILS % 0.5 % (0.0-5.0); HEMATOCRIT. 31.8 % (36.0-48.0); HEMOGLOBIN. 11.3 g/dL (12.0-16.0); LYMPHOCYTES % 9.5 % (20.0-50.0); MEAN CORPUSCULAR HEMOGLOBIN 30.4 pg (28.0-32.0); MEAN CORPUSCULAR VOLUME 85.2 fL (81.0-99.0); MONOCYTES % 9.3 % (2.0-8.0); NEUTROPHILS % 80.2 % (40.0-76.0); PLATELET 310 x1000/uL (130-400); RED BLOOD CELL COUNT 3.73 mill/uL (4.2-5.4); RED CELL DISTRIBUTION WIDTH 16.5 % (11.6-14.6)
[2019-10-10 07:12] LABS: 25-HYDROXY VITAMIN D3 23 ng/mL (.)
[2019-10-10 08:00] VITALS: BP 115/57
[2019-10-10] MEDS: METOPROLOL TARTRATE 25MG TABLET PO SCH ×2 (08:09→21:00)
[2019-10-10] MEDS: PREDNISOLONE ACETATE 1% OPHTH DROPS 5ML LEFTEYE SCH ×2 (08:09→16:59)
[2019-10-10] MEDS: LEVETIRACETAM 500MG PREMIX 100 ML IV SCH ×2 (08:10→21:17)
[2019-10-10] MEDS: DORZOLAM/TIMOLOL 2.23/0.68% OPHTH DROPS 10ML BOTHEYE SCH ×2 (08:10→21:17)
[2019-10-10] MEDS: INSULIN GLARGINE UD 100 UNITS/ML SYR SUBCUT SCH ×2 (09:52→21:32)
[2019-10-10] MEDS ORDERED: ERGOCALCIFEROL 50000UNITS CAPSULE PO SCH (17:00)
[2019-10-10 20:00] VITALS: BP 129/76
[2019-10-10] MEDS: LATANOPROST 0.005% OPHTH DROPS 2.5ML BOTHEYE SCH (21:17)
[2019-10-10] MEDS: CEFTRIAXONE 1 G PREMIX 50 ML IV SCH (23:25)
[2019-10-10] MEDS: ACETAMINOPHEN 325MG TABLET PO PRN (23:46)
[2019-10-11] MEDS: DILTIAZEM HCL 90MG TABLET PO SCH ×4 (06:00→23:14)
[2019-10-11] MEDS: BRIMONIDINE 0.2% OPHTH DROPS 5ML EACHEYE SCH ×3 (06:00→21:04)
[2019-10-11] MEDS: HYDRALAZINE HCL 25MG TABLET PO SCH ×3 (06:00→21:04)
[2019-10-11] MEDS: INSULIN LISPRO 100 UNITS/ML SUBCUT SCH ×4 (06:18→21:00)
[2019-10-11] MEDS: BLOOD SUGAR DIAGNOSTIC STRIP TEST SCH ×4 (06:18→21:04)
[2019-10-11 06:47] LABS: BASOPHILS % 0.7 % (0.0-2.0); EOSINOPHILS % 0.3 % (0.0-5.0); HEMATOCRIT. 29.2 % (36.0-48.0); HEMOGLOBIN. 10.2 g/dL (12.0-16.0); LYMPHOCYTES % 8.6 % (20.0-50.0); MEAN CORPUSCULAR HEMOGLOBIN 29.8 pg (28.0-32.0); MEAN CORPUSCULAR VOLUME 85.1 fL (81.0-99.0); MEAN PLATELET VOLUME 7.1 fl (7.4-10.4); MONOCYTES % 10.3 % (2.0-8.0); NEUTROPHILS % 80.1 % (40.0-76.0); PLATELET 330 x1000/uL (130-400); RED BLOOD CELL COUNT 3.43 mill/uL (4.2-5.4); RED CELL DISTRIBUTION WIDTH 16.6 % (11.6-14.6)
[2019-10-11] MEDS: ACETAMINOPHEN 325MG TABLET PO PRN (06:47)
[2019-10-11 08:13] VITALS: BP 122/70
[2019-10-11] MEDS: PREDNISOLONE ACETATE 1% OPHTH DROPS 5ML LEFTEYE SCH ×2 (08:43→17:31)
[2019-10-11] MEDS: DORZOLAM/TIMOLOL 2.23/0.68% OPHTH DROPS 10ML BOTHEYE SCH ×2 (08:43→21:02)
[2019-10-11] MEDS: METOPROLOL TARTRATE 25MG TABLET PO SCH ×2 (08:44→21:00)
[2019-10-11] MEDS: LEVETIRACETAM 500MG PREMIX 100 ML IV SCH ×2 (08:50→21:03)
[2019-10-11] MEDS: INSULIN GLARGINE UD 100 UNITS/ML SYR SUBCUT SCH ×2 (10:36→21:42)
[2019-10-11 17:30] VITALS: BP 131/58
[2019-10-11 20:00] VITALS: BP 125/62
[2019-10-11] MEDS: LATANOPROST 0.005% OPHTH DROPS 2.5ML BOTHEYE SCH (21:03)
[2019-10-11] MEDS: CEFTRIAXONE 1 G PREMIX 50 ML IV SCH (21:42)
[2019-10-12] MEDS: ACETAMINOPHEN 325MG TABLET PO PRN ×2 (00:38→22:07)
[2019-10-12] MEDS: BRIMONIDINE 0.2% OPHTH DROPS 5ML EACHEYE SCH ×3 (06:07→21:37)
[2019-10-12] MEDS: HYDRALAZINE HCL 25MG TABLET PO SCH ×3 (06:07→21:37)
[2019-10-12] MEDS: DILTIAZEM HCL 90MG TABLET PO SCH ×4 (06:08→23:37)
[2019-10-12] MEDS: BLOOD SUGAR DIAGNOSTIC STRIP TEST SCH ×4 (06:08→21:37)
[2019-10-12] MEDS: INSULIN LISPRO 100 UNITS/ML SUBCUT SCH ×4 (06:27→21:00)
[2019-10-12 08:10] VITALS: BP 94/42
[2019-10-12] MEDS: PREDNISOLONE ACETATE 1% OPHTH DROPS 5ML LEFTEYE SCH ×2 (08:38→17:10)
[2019-10-12] MEDS: LEVETIRACETAM 500MG PREMIX 100 ML IV SCH ×2 (08:38→21:40)
[2019-10-12] MEDS: DORZOLAM/TIMOLOL 2.23/0.68% OPHTH DROPS 10ML BOTHEYE SCH ×2 (08:39→21:36)
[2019-10-12] MEDS: METOPROLOL TARTRATE 25MG TABLET PO SCH ×2 (08:49→21:00)
[2019-10-12] MEDS: INSULIN GLARGINE UD 100 UNITS/ML SYR SUBCUT SCH ×2 (09:32→21:40)
[2019-10-12 20:00] VITALS: BP 93/58
[2019-10-12] MEDS: CEFTRIAXONE 1 G PREMIX 50 ML IV SCH (21:12)
[2019-10-12] MEDS: LATANOPROST 0.005% OPHTH DROPS 2.5ML BOTHEYE SCH (21:36)
[2019-10-13] MEDS: HYDRALAZINE HCL 25MG TABLET PO SCH ×3 (05:57→21:41)
[2019-10-13] MEDS: DILTIAZEM HCL 90MG TABLET PO SCH ×4 (05:57→23:43)
[2019-10-13] MEDS: BRIMONIDINE 0.2% OPHTH DROPS 5ML EACHEYE SCH ×3 (05:57→21:41)
[2019-10-13] MEDS: BLOOD SUGAR DIAGNOSTIC STRIP TEST SCH ×4 (05:57→20:26)
[2019-10-13] MEDS: ACETAMINOPHEN 325MG TABLET PO PRN (05:58)
[2019-10-13] MEDS: INSULIN LISPRO 100 UNITS/ML SUBCUT SCH ×4 (05:58→20:39)
[2019-10-13 06:42] LABS: BASOPHILS % 0.7 % (0.0-2.0); EOSINOPHILS % 0.8 % (0.0-5.0); HEMOGLOBIN. 10.7 g/dL (12.0-16.0); LYMPHOCYTES % 10.1 % (20.0-50.0); MEAN CORPUSCULAR VOLUME 86.3 fL (81.0-99.0); MEAN PLATELET VOLUME 6.9 fl (7.4-10.4); NEUTROPHILS % 79.4 % (40.0-76.0); PLATELET 400 x1000/uL (130-400); RED BLOOD CELL COUNT 3.47 mill/uL (4.2-5.4); RED CELL DISTRIBUTION WIDTH 16.7 % (11.6-14.6)
[2019-10-13 06:57] LABS: CHLORIDE 109 mEq/L (98-107)
[2019-10-13 08:05] VITALS: BP 101/50
[2019-10-13] MEDS: LEVETIRACETAM 500MG PREMIX 100 ML IV SCH ×2 (08:31→20:26)
[2019-10-13] MEDS: LIDOCAINE 5% PATCH TOP SCH (08:31)
[2019-10-13] MEDS: METOPROLOL TARTRATE 25MG TABLET PO SCH ×2 (08:33→20:26)
[2019-10-13] MEDS: DORZOLAM/TIMOLOL 2.23/0.68% OPHTH DROPS 10ML BOTHEYE SCH ×2 (08:34→20:20)
[2019-10-13] MEDS: PREDNISOLONE ACETATE 1% OPHTH DROPS 5ML LEFTEYE SCH ×2 (08:34→17:24)
[2019-10-13] MEDS: INSULIN GLARGINE UD 100 UNITS/ML SYR SUBCUT SCH ×2 (10:08→21:42)
[2019-10-13] MEDS ORDERED: NA PHOS,M-B/NA PHOS,DI-BA ENEMA 118ML PR NR (14:00)
[2019-10-13 20:00] VITALS: BP 123/61
[2019-10-13] MEDS: LATANOPROST 0.005% OPHTH DROPS 2.5ML BOTHEYE SCH (20:20)
[2019-10-13] MEDS: CEFTRIAXONE 1 G PREMIX 50 ML IV SCH (21:41)
[2019-10-14] MEDS: ACETAMINOPHEN 325MG TABLET PO PRN ×2 (03:39→22:17)
[2019-10-14] MEDS: HYDRALAZINE HCL 25MG TABLET PO SCH ×3 (05:41→22:55)
[2019-10-14] MEDS: BRIMONIDINE 0.2% OPHTH DROPS 5ML EACHEYE SCH ×3 (05:41→21:46)
[2019-10-14] MEDS: BLOOD SUGAR DIAGNOSTIC STRIP TEST SCH ×4 (05:42→21:50)
[2019-10-14] MEDS: DILTIAZEM HCL 90MG TABLET PO SCH ×3 (05:42→17:52)
[2019-10-14] MEDS: INSULIN LISPRO 100 UNITS/ML SUBCUT SCH ×4 (06:10→21:00)
[2019-10-14 08:13] VITALS: BP 117/59
[2019-10-14] MEDS: LEVETIRACETAM 500MG PREMIX 100 ML IV SCH ×2 (08:45→21:43)
[2019-10-14] MEDS: DORZOLAM/TIMOLOL 2.23/0.68% OPHTH DROPS 10ML BOTHEYE SCH ×2 (08:45→21:46)
[2019-10-14] MEDS: PREDNISOLONE ACETATE 1% OPHTH DROPS 5ML LEFTEYE SCH ×2 (08:45→17:51)
[2019-10-14] MEDS: METOPROLOL TARTRATE 25MG TABLET PO SCH ×2 (08:55→21:43)
[2019-10-14] MEDS: LIDOCAINE 5% PATCH TOP SCH (08:55)
[2019-10-14] MEDS: INSULIN GLARGINE UD 100 UNITS/ML SYR SUBCUT SCH ×2 (09:57→22:32)
[2019-10-14 20:00] VITALS: BP 116/65
[2019-10-14] MEDS: LATANOPROST 0.005% OPHTH DROPS 2.5ML BOTHEYE SCH (21:46)
[2019-10-15] MEDS: HYDRALAZINE HCL 25MG TABLET PO SCH ×3 (06:00→22:47)
[2019-10-15] MEDS: DILTIAZEM HCL 90MG TABLET PO SCH ×4 (06:00→17:01)
[2019-10-15] MEDS: BLOOD SUGAR DIAGNOSTIC STRIP TEST SCH ×4 (06:29→21:23)
[2019-10-15] MEDS: INSULIN LISPRO 100 UNITS/ML SUBCUT SCH ×4 (06:29→21:00)
[2019-10-15] MEDS: BRIMONIDINE 0.2% OPHTH DROPS 5ML EACHEYE SCH ×3 (06:31→21:08)
[2019-10-15 08:00] VITALS: BP 107/55
[2019-10-15] MEDS: SILVER SULFADIAZINE 1% CREAM 50GM TOP SCH (08:22)
[2019-10-15] MEDS: PREDNISOLONE ACETATE 1% OPHTH DROPS 5ML LEFTEYE SCH ×2 (08:23→17:01)
[2019-10-15] MEDS: DORZOLAM/TIMOLOL 2.23/0.68% OPHTH DROPS 10ML BOTHEYE SCH ×2 (08:23→21:07)
[2019-10-15] MEDS: LIDOCAINE 5% PATCH TOP SCH (08:23)
[2019-10-15] MEDS: METOPROLOL TARTRATE 25MG TABLET PO SCH ×2 (08:24→21:12)
[2019-10-15] MEDS: LEVETIRACETAM 500MG PREMIX 100 ML IV SCH ×2 (08:28→21:08)
[2019-10-15] MEDS: INSULIN GLARGINE UD 100 UNITS/ML SYR SUBCUT SCH ×2 (09:46→23:02)
[2019-10-15] MEDS ORDERED: METHOTREXATE SODIUM 2 . 5MG TABLET PO SCH (19:00)
[2019-10-15 20:00] VITALS: BP 138/70
[2019-10-15] MEDS: LATANOPROST 0.005% OPHTH DROPS 2.5ML BOTHEYE SCH (21:07)
[2019-10-15] MEDS: ACETAMINOPHEN 325MG TABLET PO PRN (21:12)
[2019-10-16] MEDS: DILTIAZEM HCL 90MG TABLET PO SCH ×4 (01:16→17:26)
[2019-10-16] MEDS: BLOOD SUGAR DIAGNOSTIC STRIP TEST SCH ×4 (05:44→21:11)
[2019-10-16] MEDS: HYDRALAZINE HCL 25MG TABLET PO SCH ×3 (05:44→22:00)
[2019-10-16] MEDS: INSULIN LISPRO 100 UNITS/ML SUBCUT SCH ×4 (05:45→21:47)
[2019-10-16] MEDS: BRIMONIDINE 0.2% OPHTH DROPS 5ML EACHEYE SCH ×3 (05:45→21:11)
[2019-10-16 05:54] LABS: CHLORIDE 111 mEq/L (98-107)
[2019-10-16 06:21] LABS: BASOPHILS % 0.7 % (0.0-2.0); EOSINOPHILS % 1.4 % (0.0-5.0); HEMATOCRIT. 28.3 % (36.0-48.0); HEMOGLOBIN. 10.1 g/dL (12.0-16.0); LYMPHOCYTES % 12.3 % (20.0-50.0); MEAN CORPUSCULAR VOLUME 84.4 fL (81.0-99.0); MEAN PLATELET VOLUME 6.9 fl (7.4-10.4); MONOCYTES % 10.9 % (2.0-8.0); NEUTROPHILS % 74.7 % (40.0-76.0); PLATELET 448 x1000/uL (130-400); RED BLOOD CELL COUNT 3.35 mill/uL (4.2-5.4); RED CELL DISTRIBUTION WIDTH 17.2 % (11.6-14.6)
[2019-10-16 08:09] VITALS: BP 125/84
[2019-10-16] MEDS: METOPROLOL TARTRATE 25MG TABLET PO SCH ×2 (09:38→21:12)
[2019-10-16] MEDS: LIDOCAINE 5% PATCH TOP SCH (09:38)
[2019-10-16] MEDS: LEVETIRACETAM 500MG PREMIX 100 ML IV SCH ×2 (09:38→21:20)
[2019-10-16] MEDS: SILVER SULFADIAZINE 1% CREAM 50GM TOP SCH (09:40)
[2019-10-16] MEDS: DORZOLAM/TIMOLOL 2.23/0.68% OPHTH DROPS 10ML BOTHEYE SCH ×2 (09:41→21:10)
[2019-10-16] MEDS: PREDNISOLONE ACETATE 1% OPHTH DROPS 5ML LEFTEYE SCH ×2 (09:41→16:23)
[2019-10-16] MEDS: INSULIN GLARGINE UD 100 UNITS/ML SYR SUBCUT SCH ×2 (10:56→22:00)
[2019-10-16] MEDS ORDERED: NA PHOS,M-B/NA PHOS,DI-BA ENEMA 118ML PR ONE (11:00)
[2019-10-16 20:00] VITALS: BP 120/80
[2019-10-16] MEDS: LATANOPROST 0.005% OPHTH DROPS 2.5ML BOTHEYE SCH (21:11)
[2019-10-16] MEDS: ACETAMINOPHEN 325MG TABLET PO PRN (21:13)
[2019-10-17] MEDS: DILTIAZEM HCL 90MG TABLET PO SCH ×5 (05:26→23:30)
[2019-10-17] MEDS: HYDRALAZINE HCL 25MG TABLET PO SCH ×3 (05:27→21:43)
[2019-10-17] MEDS: BRIMONIDINE 0.2% OPHTH DROPS 5ML EACHEYE SCH ×3 (05:38→21:43)
[2019-10-17] MEDS: BLOOD SUGAR DIAGNOSTIC STRIP TEST SCH ×4 (07:10→20:29)
[2019-10-17] MEDS: INSULIN LISPRO 100 UNITS/ML SUBCUT SCH ×4 (07:11→21:44)
[2019-10-17 07:53] VITALS: BP 159/74
[2019-10-17] MEDS: METOPROLOL TARTRATE 25MG TABLET PO SCH ×2 (08:23→20:29)
[2019-10-17] MEDS: PREDNISOLONE ACETATE 1% OPHTH DROPS 5ML LEFTEYE SCH ×2 (08:24→17:05)
[2019-10-17] MEDS: LIDOCAINE 5% PATCH TOP SCH (08:24)
[2019-10-17] MEDS: LEVETIRACETAM 500MG PREMIX 100 ML IV SCH ×2 (08:24→20:28)
[2019-10-17] MEDS: DORZOLAM/TIMOLOL 2.23/0.68% OPHTH DROPS 10ML BOTHEYE SCH ×2 (08:24→20:28)
[2019-10-17] MEDS: SILVER SULFADIAZINE 1% CREAM 50GM TOP SCH (08:25)
[2019-10-17] MEDS: INSULIN GLARGINE UD 100 UNITS/ML SYR SUBCUT SCH ×2 (09:58→21:44)
[2019-10-17] MEDS: ERGOCALCIFEROL 50000UNITS CAPSULE PO SCH (16:52)
[2019-10-17 20:00] VITALS: BP 119/59
[2019-10-17] MEDS: LATANOPROST 0.005% OPHTH DROPS 2.5ML BOTHEYE SCH (20:28)
[2019-10-17] MEDS: ACETAMINOPHEN 325MG TABLET PO PRN (23:33)
[2019-10-18] MEDS: BRIMONIDINE 0.2% OPHTH DROPS 5ML EACHEYE SCH ×3 (05:53→21:33)
[2019-10-18] MEDS: HYDRALAZINE HCL 25MG TABLET PO SCH ×3 (05:54→21:22)
[2019-10-18] MEDS: BLOOD SUGAR DIAGNOSTIC STRIP TEST SCH ×4 (05:54→20:18)
[2019-10-18] MEDS: DILTIAZEM HCL 90MG TABLET PO SCH ×4 (05:54→23:59)
[2019-10-18] MEDS: INSULIN LISPRO 100 UNITS/ML SUBCUT SCH ×4 (05:55→21:00)
[2019-10-18 08:11] VITALS: BP 124/45
[2019-10-18] MEDS: DORZOLAM/TIMOLOL 2.23/0.68% OPHTH DROPS 10ML BOTHEYE SCH ×2 (08:36→21:32)
[2019-10-18] MEDS: PREDNISOLONE ACETATE 1% OPHTH DROPS 5ML LEFTEYE SCH ×2 (08:36→17:20)
[2019-10-18] MEDS: SILVER SULFADIAZINE 1% CREAM 50GM TOP SCH (08:37)
[2019-10-18] MEDS: LEVETIRACETAM 500MG PREMIX 100 ML IV SCH ×2 (08:37→21:21)
[2019-10-18] MEDS: LIDOCAINE 5% PATCH TOP SCH (08:37)
[2019-10-18] MEDS: METOPROLOL TARTRATE 25MG TABLET PO SCH ×2 (08:38→21:21)
[2019-10-18] MEDS: INSULIN GLARGINE UD 100 UNITS/ML SYR SUBCUT SCH ×2 (10:19→22:00)
[2019-10-18] MEDS ORDERED: HYDROCODONE/ACETAMINOPHEN 5/325MG TABLET PO PRN (12:15)
[2019-10-18] MEDS: ACETAMINOPHEN 325MG TABLET PO PRN (12:38)
[2019-10-18] MEDS: ACETAMINOPHEN 500MG TABLET PO SCH (17:20)
[2019-10-18 20:00] VITALS: BP 131/81
[2019-10-18] MEDS: LATANOPROST 0.005% OPHTH DROPS 2.5ML BOTHEYE SCH (21:32)
[2019-10-19] MEDS: HYDRALAZINE HCL 25MG TABLET PO SCH ×3 (05:35→21:39)
[2019-10-19] MEDS: DILTIAZEM HCL 90MG TABLET PO SCH ×4 (05:35→23:44)
[2019-10-19] MEDS: BLOOD SUGAR DIAGNOSTIC STRIP TEST SCH ×4 (05:35→21:10)
[2019-10-19] MEDS: BRIMONIDINE 0.2% OPHTH DROPS 5ML EACHEYE SCH ×3 (05:35→21:39)
[2019-10-19] MEDS: INSULIN LISPRO 100 UNITS/ML SUBCUT SCH ×4 (05:36→21:00)
[2019-10-19 06:04] LABS: CHLORIDE 111 mEq/L (98-107)
[2019-10-19 06:09] LABS: PHOSPHORUS 3.3 mg/dL (2.5-4.9)
[2019-10-19 06:21] LABS: BASOPHILS % 0.6 % (0.0-2.0); EOSINOPHILS % 1.8 % (0.0-5.0); HEMATOCRIT. 29.9 % (36.0-48.0); HEMOGLOBIN. 10.6 g/dL (12.0-16.0); LYMPHOCYTES % 15.2 % (20.0-50.0); MEAN CORPUSCULAR HEMOGLOBIN 29.8 pg (28.0-32.0); MEAN CORPUSCULAR VOLUME 84.6 fL (81.0-99.0); MEAN PLATELET VOLUME 6.8 fl (7.4-10.4); MONOCYTES % 12.1 % (2.0-8.0); NEUTROPHILS % 70.3 % (40.0-76.0); PLATELET 524 x1000/uL (130-400); RED BLOOD CELL COUNT 3.54 mill/uL (4.2-5.4); RED CELL DISTRIBUTION WIDTH 17.3 % (11.6-14.6)
[2019-10-19] MEDS: NA PHOS,M-B/NA PHOS,DI-BA ENEMA 118ML PR PRN (06:36)
[2019-10-19 08:00] VITALS: BP 99/45
[2019-10-19] MEDS: METOPROLOL TARTRATE 25MG TABLET PO SCH ×2 (09:00→20:48)
[2019-10-19] MEDS: LEVETIRACETAM 500MG PREMIX 100 ML IV SCH ×2 (09:21→20:47)
[2019-10-19] MEDS: LIDOCAINE 5% PATCH TOP SCH (09:22)
[2019-10-19] MEDS: ACETAMINOPHEN 500MG TABLET PO SCH ×3 (09:23→17:05)
[2019-10-19] MEDS: SILVER SULFADIAZINE 1% CREAM 50GM TOP SCH (09:40)
[2019-10-19] MEDS: PREDNISOLONE ACETATE 1% OPHTH DROPS 5ML LEFTEYE SCH ×2 (09:40→17:06)
[2019-10-19] MEDS: DORZOLAM/TIMOLOL 2.23/0.68% OPHTH DROPS 10ML BOTHEYE SCH ×2 (09:40→20:47)
[2019-10-19] MEDS: INSULIN GLARGINE UD 100 UNITS/ML SYR SUBCUT SCH ×2 (10:32→21:40)
[2019-10-19 20:00] VITALS: BP 106/56
[2019-10-19] MEDS: LATANOPROST 0.005% OPHTH DROPS 2.5ML BOTHEYE SCH (20:47)
[2019-10-20] MEDS: HYDRALAZINE HCL 25MG TABLET PO SCH ×3 (05:31→21:30)
[2019-10-20] MEDS: BRIMONIDINE 0.2% OPHTH DROPS 5ML EACHEYE SCH ×3 (05:31→21:31)
[2019-10-20] MEDS: DILTIAZEM HCL 90MG TABLET PO SCH ×4 (05:32→23:49)
[2019-10-20] MEDS: INSULIN LISPRO 100 UNITS/ML SUBCUT SCH ×4 (06:22→21:00)
[2019-10-20] MEDS: BLOOD SUGAR DIAGNOSTIC STRIP TEST SCH ×4 (06:22→21:40)
[2019-10-20 08:00] VITALS: BP 112/52
[2019-10-20] MEDS: PREDNISOLONE ACETATE 1% OPHTH DROPS 5ML LEFTEYE SCH ×2 (08:39→18:09)
[2019-10-20] MEDS: DORZOLAM/TIMOLOL 2.23/0.68% OPHTH DROPS 10ML BOTHEYE SCH ×2 (08:39→21:30)
[2019-10-20] MEDS: MULTIVITAMINS,THER W-MINERALS TABLET PO SCH (08:39)
[2019-10-20] MEDS: METOPROLOL TARTRATE 25MG TABLET PO SCH ×2 (08:41→21:30)
[2019-10-20] MEDS: ACETAMINOPHEN 500MG TABLET PO SCH ×3 (08:41→18:13)
[2019-10-20] MEDS: LEVETIRACETAM 500MG PREMIX 100 ML IV SCH ×2 (08:41→21:29)
[2019-10-20] MEDS: LIDOCAINE 5% PATCH TOP SCH (08:42)
[2019-10-20] MEDS: SILVER SULFADIAZINE 1% CREAM 50GM TOP SCH (08:42)
[2019-10-20] MEDS: INSULIN GLARGINE UD 100 UNITS/ML SYR SUBCUT SCH ×2 (12:46→21:46)
[2019-10-20 20:00] VITALS: BP 120/37
[2019-10-20] MEDS: LATANOPROST 0.005% OPHTH DROPS 2.5ML BOTHEYE SCH (21:30)
[2019-10-21] MEDS: HYDRALAZINE HCL 25MG TABLET PO SCH ×3 (05:17→22:43)
[2019-10-21] MEDS: DILTIAZEM HCL 90MG TABLET PO SCH ×3 (05:17→17:28)
[2019-10-21] MEDS: BRIMONIDINE 0.2% OPHTH DROPS 5ML EACHEYE SCH ×3 (05:17→21:19)
[2019-10-21] MEDS: INSULIN LISPRO 100 UNITS/ML SUBCUT SCH ×4 (06:29→22:27)
[2019-10-21] MEDS: BLOOD SUGAR DIAGNOSTIC STRIP TEST SCH ×4 (06:29→21:21)
[2019-10-21 08:06] VITALS: BP 118/44
[2019-10-21] MEDS: LIDOCAINE 5% PATCH TOP SCH (08:40)
[2019-10-21] MEDS: MULTIVITAMINS,THER W-MINERALS TABLET PO SCH (08:41)
[2019-10-21] MEDS: LEVETIRACETAM 500MG PREMIX 100 ML IV SCH ×2 (08:41→21:20)
[2019-10-21] MEDS: ACETAMINOPHEN 500MG TABLET PO SCH ×3 (08:41→17:27)
[2019-10-21] MEDS: PREDNISOLONE ACETATE 1% OPHTH DROPS 5ML LEFTEYE SCH ×2 (08:42→17:28)
[2019-10-21] MEDS: DORZOLAM/TIMOLOL 2.23/0.68% OPHTH DROPS 10ML BOTHEYE SCH ×2 (08:42→21:19)
[2019-10-21] MEDS: METOPROLOL TARTRATE 25MG TABLET PO SCH ×2 (08:42→21:20)
[2019-10-21] MEDS: SILVER SULFADIAZINE 1% CREAM 50GM TOP SCH (08:43)
[2019-10-21] MEDS: INSULIN GLARGINE UD 100 UNITS/ML SYR SUBCUT SCH ×2 (11:05→22:49)
[2019-10-21 20:00] VITALS: BP 116/62
[2019-10-21] MEDS: LATANOPROST 0.005% OPHTH DROPS 2.5ML BOTHEYE SCH (21:19)
[2019-10-21] MEDS: ACETAMINOPHEN 325MG TABLET PO PRN (21:20)
[2019-10-22] MEDS: DILTIAZEM HCL 90MG TABLET PO SCH ×4 (00:55→17:03)
[2019-10-22] MEDS: BLOOD SUGAR DIAGNOSTIC STRIP TEST SCH ×4 (05:53→20:54)
[2019-10-22] MEDS: HYDRALAZINE HCL 25MG TABLET PO SCH ×3 (05:53→21:52)
[2019-10-22] MEDS: INSULIN LISPRO 100 UNITS/ML SUBCUT SCH ×4 (05:53→20:54)
[2019-10-22] MEDS: BRIMONIDINE 0.2% OPHTH DROPS 5ML EACHEYE SCH ×3 (06:01→21:10)
[2019-10-22 06:43] LABS: BASOPHILS % 0.5 % (0.0-2.0); EOSINOPHILS % 2.5 % (0.0-5.0); HEMATOCRIT. 31.9 % (36.0-48.0); LYMPHOCYTES % 14.2 % (20.0-50.0); MEAN CORPUSCULAR HEMOGLOBIN 29.5 pg (28.0-32.0); MEAN CORPUSCULAR VOLUME 85.6 fL (81.0-99.0); MEAN PLATELET VOLUME 6.9 fl (7.4-10.4); MONOCYTES % 9.2 % (2.0-8.0); NEUTROPHILS % 73.6 % (40.0-76.0); PLATELET 536 x1000/uL (130-400); RED BLOOD CELL COUNT 3.73 mill/uL (4.2-5.4); RED CELL DISTRIBUTION WIDTH 17.8 % (11.6-14.6)
[2019-10-22 06:53] LABS: CHLORIDE 110 mEq/L (98-107)
[2019-10-22 08:08] VITALS: BP 110/59
[2019-10-22] MEDS: LIDOCAINE 5% PATCH TOP SCH (08:37)
[2019-10-22] MEDS: MULTIVITAMINS,THER W-MINERALS TABLET PO SCH (08:37)
[2019-10-22] MEDS: LEVETIRACETAM 500MG PREMIX 100 ML IV SCH ×2 (08:37→20:37)
[2019-10-22] MEDS: ACETAMINOPHEN 500MG TABLET PO SCH ×3 (08:37→17:03)
[2019-10-22] MEDS: SILVER SULFADIAZINE 1% CREAM 50GM TOP SCH (08:40)
[2019-10-22] MEDS: METOPROLOL TARTRATE 25MG TABLET PO SCH ×2 (08:40→20:36)
[2019-10-22] MEDS: PREDNISOLONE ACETATE 1% OPHTH DROPS 5ML LEFTEYE SCH ×2 (08:47→17:03)
[2019-10-22] MEDS: DORZOLAM/TIMOLOL 2.23/0.68% OPHTH DROPS 10ML BOTHEYE SCH ×2 (08:47→20:37)
[2019-10-22] MEDS: INSULIN GLARGINE UD 100 UNITS/ML SYR SUBCUT SCH ×2 (11:01→21:53)
[2019-10-22 14:35] VITALS: BP 111/54
[2019-10-22 20:00] VITALS: BP 130/74
[2019-10-22] MEDS: ACETAMINOPHEN 325MG TABLET PO PRN (20:36)
[2019-10-22] MEDS: LATANOPROST 0.005% OPHTH DROPS 2.5ML BOTHEYE SCH (20:37)
[2019-10-23] MEDS: DILTIAZEM HCL 90MG TABLET PO SCH ×4 (00:27→17:40)
[2019-10-23] MEDS: HYDRALAZINE HCL 25MG TABLET PO SCH ×3 (05:48→22:00)
[2019-10-23] MEDS: ACETAMINOPHEN 325MG TABLET PO PRN ×2 (05:48→20:45)
[2019-10-23] MEDS: BLOOD SUGAR DIAGNOSTIC STRIP TEST SCH ×4 (05:49→21:06)
[2019-10-23] MEDS: BRIMONIDINE 0.2% OPHTH DROPS 5ML EACHEYE SCH ×3 (05:49→21:06)
[2019-10-23] MEDS: INSULIN LISPRO 100 UNITS/ML SUBCUT SCH ×4 (05:49→21:00)
[2019-10-23 07:39] VITALS: BP 116/75
[2019-10-23] MEDS: DORZOLAM/TIMOLOL 2.23/0.68% OPHTH DROPS 10ML BOTHEYE SCH ×2 (08:28→17:50)
[2019-10-23] MEDS: LIDOCAINE 5% PATCH TOP SCH (08:29)
[2019-10-23] MEDS: PREDNISOLONE ACETATE 1% OPHTH DROPS 5ML LEFTEYE SCH ×2 (08:29→17:50)
[2019-10-23] MEDS: LEVETIRACETAM 500MG PREMIX 100 ML IV SCH ×2 (08:30→20:44)
[2019-10-23] MEDS: METOPROLOL TARTRATE 25MG TABLET PO SCH ×2 (08:30→20:45)
[2019-10-23] MEDS: MULTIVITAMINS,THER W-MINERALS TABLET PO SCH (08:30)
[2019-10-23] MEDS: ACETAMINOPHEN 500MG TABLET PO SCH ×3 (08:30→17:36)
[2019-10-23] MEDS: SILVER SULFADIAZINE 1% CREAM 50GM TOP SCH (08:31)
[2019-10-23] MEDS: NA PHOS,M-B/NA PHOS,DI-BA ENEMA 118ML PR PRN (10:46)
[2019-10-23] MEDS: INSULIN GLARGINE UD 100 UNITS/ML SYR SUBCUT SCH ×2 (10:46→22:10)
[2019-10-23 12:08] VITALS: BP 127/63
[2019-10-23 17:40] VITALS: BP 111/47
[2019-10-23 20:00] VITALS: BP 116/77
[2019-10-23] MEDS: LATANOPROST 0.005% OPHTH DROPS 2.5ML BOTHEYE SCH (20:44)
[2019-10-24] MEDS: DILTIAZEM HCL 90MG TABLET PO SCH ×5 (00:35→23:40)
[2019-10-24] MEDS: HYDRALAZINE HCL 25MG TABLET PO SCH ×3 (05:34→21:31)
[2019-10-24] MEDS: BLOOD SUGAR DIAGNOSTIC STRIP TEST SCH ×4 (05:35→21:34)
[2019-10-24] MEDS: BRIMONIDINE 0.2% OPHTH DROPS 5ML EACHEYE SCH ×3 (05:35→21:31)
[2019-10-24] MEDS: INSULIN LISPRO 100 UNITS/ML SUBCUT SCH ×4 (05:35→21:00)
[2019-10-24 07:24] LABS: BASOPHILS % 0.6 % (0.0-2.0); EOSINOPHILS % 1.2 % (0.0-5.0); HEMATOCRIT. 27.5 % (36.0-48.0); HEMOGLOBIN. 9.6 g/dL (12.0-16.0); LYMPHOCYTES % 17.8 % (20.0-50.0); MEAN CORPUSCULAR HEMOGLOBIN 29.5 pg (28.0-32.0); MEAN CORPUSCULAR VOLUME 84.3 fL (81.0-99.0); MEAN PLATELET VOLUME 6.3 fl (7.4-10.4); MONOCYTES % 11.7 % (2.0-8.0); NEUTROPHILS % 68.7 % (40.0-76.0); PLATELET 440 x1000/uL (130-400); RED BLOOD CELL COUNT 3.26 mill/uL (4.2-5.4); RED CELL DISTRIBUTION WIDTH 18.2 % (11.6-14.6)
[2019-10-24 08:00] VITALS: BP 112/46
[2019-10-24] MEDS: DORZOLAM/TIMOLOL 2.23/0.68% OPHTH DROPS 10ML BOTHEYE SCH ×2 (08:10→20:54)
[2019-10-24] MEDS: LEVETIRACETAM 500MG PREMIX 100 ML IV SCH ×2 (08:10→20:55)
[2019-10-24] MEDS: PREDNISOLONE ACETATE 1% OPHTH DROPS 5ML LEFTEYE SCH ×2 (08:10→16:51)
[2019-10-24] MEDS: ERGOCALCIFEROL 50000UNITS CAPSULE PO SCH (08:11)
[2019-10-24] MEDS: MULTIVITAMINS,THER W-MINERALS TABLET PO SCH (08:11)
[2019-10-24] MEDS: LIDOCAINE 5% PATCH TOP SCH (08:12)
[2019-10-24] MEDS: SILVER SULFADIAZINE 1% CREAM 50GM TOP SCH (08:12)
[2019-10-24] MEDS: ACETAMINOPHEN 500MG TABLET PO SCH ×3 (08:18→16:51)
[2019-10-24] MEDS: METOPROLOL TARTRATE 25MG TABLET PO SCH ×2 (08:19→20:55)
[2019-10-24] MEDS: INSULIN GLARGINE UD 100 UNITS/ML SYR SUBCUT SCH ×2 (11:27→21:50)
[2019-10-24 20:00] VITALS: BP 102/81
[2019-10-24] MEDS: LATANOPROST 0.005% OPHTH DROPS 2.5ML BOTHEYE SCH (20:54)
[2019-10-25] MEDS: DILTIAZEM HCL 90MG TABLET PO SCH ×4 (05:32→23:18)
[2019-10-25] MEDS: HYDRALAZINE HCL 25MG TABLET PO SCH ×3 (05:32→21:10)
[2019-10-25] MEDS: BRIMONIDINE 0.2% OPHTH DROPS 5ML EACHEYE SCH ×3 (05:32→22:21)
[2019-10-25] MEDS: BLOOD SUGAR DIAGNOSTIC STRIP TEST SCH ×4 (06:23→21:15)
[2019-10-25] MEDS: INSULIN LISPRO 100 UNITS/ML SUBCUT SCH ×4 (06:44→21:00)
[2019-10-25 07:33] LABS: BASOPHILS % 0.4 % (0.0-2.0); EOSINOPHILS % 1.1 % (0.0-5.0); HEMATOCRIT. 28.8 % (36.0-48.0); HEMOGLOBIN. 9.9 g/dL (12.0-16.0); LYMPHOCYTES % 16.5 % (20.0-50.0); MEAN CORPUSCULAR HEMOGLOBIN 29.4 pg (28.0-32.0); MEAN CORPUSCULAR VOLUME 85.7 fL (81.0-99.0); MEAN PLATELET VOLUME 6.8 fl (7.4-10.4); MONOCYTES % 11.6 % (2.0-8.0); NEUTROPHILS % 70.4 % (40.0-76.0); PLATELET 441 x1000/uL (130-400); RED BLOOD CELL COUNT 3.36 mill/uL (4.2-5.4); RED CELL DISTRIBUTION WIDTH 18.5 % (11.6-14.6)
[2019-10-25 07:51] LABS: CHLORIDE 110 mEq/L (98-107)
[2019-10-25 08:18] VITALS: BP 106/50
[2019-10-25] MEDS: DORZOLAM/TIMOLOL 2.23/0.68% OPHTH DROPS 10ML BOTHEYE SCH ×2 (08:48→21:08)
[2019-10-25] MEDS: PREDNISOLONE ACETATE 1% OPHTH DROPS 5ML LEFTEYE SCH ×2 (08:48→18:07)
[2019-10-25] MEDS: LIDOCAINE 5% PATCH TOP SCH (08:51)
[2019-10-25] MEDS: METOPROLOL TARTRATE 25MG TABLET PO SCH ×2 (08:54→21:14)
[2019-10-25] MEDS: MULTIVITAMINS,THER W-MINERALS TABLET PO SCH (08:54)
[2019-10-25] MEDS: ACETAMINOPHEN 500MG TABLET PO SCH ×3 (08:54→18:05)
[2019-10-25] MEDS: SILVER SULFADIAZINE 1% CREAM 50GM TOP SCH (08:55)
[2019-10-25] MEDS: LEVETIRACETAM 500MG PREMIX 100 ML IV SCH ×2 (08:55→21:08)
[2019-10-25] MEDS: INSULIN GLARGINE UD 100 UNITS/ML SYR SUBCUT SCH ×2 (10:57→22:31)
[2019-10-25] MEDS ORDERED: HYDROCODONE/ACETAMINOPHEN 5/325MG TABLET PO PRN (13:30)
[2019-10-25] MEDS ORDERED: METHOTREXATE SODIUM 2 . 5MG TABLET PO SCH (15:00)
[2019-10-25] MEDS ORDERED: LACTULOSE 20G/30ML UDC PO NR (17:30)
[2019-10-25 20:00] VITALS: BP 145/73
[2019-10-25] MEDS: LATANOPROST 0.005% OPHTH DROPS 2.5ML BOTHEYE SCH (21:09)
[2019-10-26] VITALS: BP 118/51
[2019-10-26] MEDS: HYDRALAZINE HCL 25MG TABLET PO SCH ×3 (05:55→22:56)
[2019-10-26] MEDS: BRIMONIDINE 0.2% OPHTH DROPS 5ML EACHEYE SCH ×3 (05:56→21:37)
[2019-10-26] MEDS: DILTIAZEM HCL 90MG TABLET PO SCH ×3 (05:56→17:07)
[2019-10-26 06:00] VITALS: BP 144/70
[2019-10-26] MEDS: BLOOD SUGAR DIAGNOSTIC STRIP TEST SCH ×4 (06:01→21:36)
[2019-10-26] MEDS: LEVETIRACETAM 500MG PREMIX 100 ML IV SCH ×2 (08:15→21:36)
[2019-10-26] MEDS: PREDNISOLONE ACETATE 1% OPHTH DROPS 5ML LEFTEYE SCH ×2 (08:15→17:07)
[2019-10-26] MEDS: DORZOLAM/TIMOLOL 2.23/0.68% OPHTH DROPS 10ML BOTHEYE SCH ×2 (08:15→21:36)
[2019-10-26] MEDS: LIDOCAINE 5% PATCH TOP SCH (08:16)
[2019-10-26] MEDS: INSULIN LISPRO 100 UNITS/ML SUBCUT SCH ×4 (08:16→23:00)
[2019-10-26] MEDS: ACETAMINOPHEN 500MG TABLET PO SCH ×3 (08:16→17:07)
[2019-10-26] MEDS: MULTIVITAMINS,THER W-MINERALS TABLET PO SCH (08:16)
[2019-10-26] MEDS: METOPROLOL TARTRATE 25MG TABLET PO SCH ×2 (08:16→21:34)
[2019-10-26 08:17] VITALS: BP 87/43
[2019-10-26] MEDS: SILVER SULFADIAZINE 1% CREAM 50GM TOP SCH (08:17)
[2019-10-26 08:57] VITALS: BP 105/47
[2019-10-26] MEDS: INSULIN GLARGINE UD 100 UNITS/ML SYR SUBCUT SCH ×2 (10:37→23:08)
[2019-10-26] MEDS ORDERED: LACTULOSE 20G/30ML UDC PO ONE (14:00)
[2019-10-26 20:00] VITALS: BP 133/48
[2019-10-26] MEDS: LATANOPROST 0.005% OPHTH DROPS 2.5ML BOTHEYE SCH (21:36)
[2019-10-27] MEDS: DILTIAZEM HCL 90MG TABLET PO SCH ×4 (00:06→17:10)
[2019-10-27] MEDS: HYDRALAZINE HCL 25MG TABLET PO SCH ×3 (06:49→22:00)
[2019-10-27 06:51] LABS: BASOPHILS % 0.6 % (0.0-2.0); EOSINOPHILS % 0.7 % (0.0-5.0); HEMOGLOBIN. 10.1 g/dL (12.0-16.0); LYMPHOCYTES % 17.7 % (20.0-50.0); MEAN CORPUSCULAR HEMOGLOBIN 29.8 pg (28.0-32.0); MEAN CORPUSCULAR VOLUME 85.4 fL (81.0-99.0); MEAN PLATELET VOLUME 6.7 fl (7.4-10.4); MONOCYTES % 10.4 % (2.0-8.0); NEUTROPHILS % 70.6 % (40.0-76.0); PLATELET 417 x1000/uL (130-400); RED CELL DISTRIBUTION WIDTH 18.6 % (11.6-14.6)
[2019-10-27] MEDS: BLOOD SUGAR DIAGNOSTIC STRIP TEST SCH ×4 (06:53→21:19)
[2019-10-27] MEDS: BRIMONIDINE 0.2% OPHTH DROPS 5ML EACHEYE SCH ×3 (06:54→21:02)
[2019-10-27] MEDS: INSULIN LISPRO 100 UNITS/ML SUBCUT SCH ×4 (06:54→22:05)
[2019-10-27 07:00] LABS: CHLORIDE 110 mEq/L (98-107)
[2019-10-27 07:59] VITALS: BP 135/66
[2019-10-27] MEDS: DORZOLAM/TIMOLOL 2.23/0.68% OPHTH DROPS 10ML BOTHEYE SCH ×2 (08:07→21:01)
[2019-10-27] MEDS: PREDNISOLONE ACETATE 1% OPHTH DROPS 5ML LEFTEYE SCH ×2 (08:08→17:11)
[2019-10-27] MEDS: LIDOCAINE 5% PATCH TOP SCH (08:08)
[2019-10-27] MEDS: METOPROLOL TARTRATE 25MG TABLET PO SCH ×2 (08:09→21:03)
[2019-10-27] MEDS: LEVETIRACETAM 500MG PREMIX 100 ML IV SCH ×2 (08:10→21:02)
[2019-10-27] MEDS: ACETAMINOPHEN 500MG TABLET PO SCH ×3 (08:10→17:10)
[2019-10-27] MEDS: MULTIVITAMINS,THER W-MINERALS TABLET PO SCH (08:10)
[2019-10-27] MEDS: SILVER SULFADIAZINE 1% CREAM 50GM TOP SCH (08:30)
[2019-10-27] MEDS: INSULIN GLARGINE UD 100 UNITS/ML SYR SUBCUT SCH ×2 (09:19→23:06)
[2019-10-27 20:00] VITALS: BP 137/55
[2019-10-27] MEDS: ACETAMINOPHEN 325MG TABLET PO PRN ×2 (21:01)
[2019-10-27] MEDS: LATANOPROST 0.005% OPHTH DROPS 2.5ML BOTHEYE SCH (21:02)
[2019-10-28] MEDS: DILTIAZEM HCL 90MG TABLET PO SCH ×4 (05:44→17:10)
[2019-10-28] MEDS: HYDRALAZINE HCL 25MG TABLET PO SCH ×3 (05:44→22:04)
[2019-10-28] MEDS: BRIMONIDINE 0.2% OPHTH DROPS 5ML EACHEYE SCH ×3 (05:46→21:00)
[2019-10-28] MEDS: BLOOD SUGAR DIAGNOSTIC STRIP TEST SCH ×4 (06:55→20:46)
[2019-10-28] MEDS: INSULIN LISPRO 100 UNITS/ML SUBCUT SCH ×4 (06:55→20:46)
[2019-10-28 08:11] VITALS: BP 103/42
[2019-10-28] MEDS: METOPROLOL TARTRATE 25MG TABLET PO SCH ×2 (09:00→20:44)
[2019-10-28] MEDS: LEVETIRACETAM 500MG PREMIX 100 ML IV SCH ×2 (09:46→20:45)
[2019-10-28] MEDS: DORZOLAM/TIMOLOL 2.23/0.68% OPHTH DROPS 10ML BOTHEYE SCH ×2 (09:47→20:43)
[2019-10-28] MEDS: PREDNISOLONE ACETATE 1% OPHTH DROPS 5ML LEFTEYE SCH ×2 (09:47→17:06)
[2019-10-28] MEDS: SILVER SULFADIAZINE 1% CREAM 50GM TOP SCH (09:47)
[2019-10-28] MEDS: MULTIVITAMINS,THER W-MINERALS TABLET PO SCH (09:47)
[2019-10-28] MEDS: ACETAMINOPHEN 500MG TABLET PO SCH ×3 (09:48→17:06)
[2019-10-28] MEDS: LIDOCAINE 5% PATCH TOP SCH (09:49)
[2019-10-28] MEDS: INSULIN GLARGINE UD 100 UNITS/ML SYR SUBCUT SCH ×2 (10:06→22:51)
[2019-10-28] MEDS ORDERED: MAGNESIUM/ALUMINUM HYDROXIDE/SIMETHICONE 30ML UDC PO PRN (10:45)
[2019-10-28] MEDS ORDERED: BISACODYL 10MG SUPP PR PRN (11:00)
[2019-10-28] MEDS: PANTOPRAZOLE SODIUM 40 MG/VIAL IV SCH (11:06)
[2019-10-28] MEDS: LACTULOSE 20G/30ML UDC PO SCH ×2 (12:58→14:11)
[2019-10-28 20:00] VITALS: BP 126/63
[2019-10-28] MEDS: LATANOPROST 0.005% OPHTH DROPS 2.5ML BOTHEYE SCH (20:43)
[2019-10-28] MEDS: ACETAMINOPHEN 325MG TABLET PO PRN (20:44)
[2019-10-29] MEDS: DILTIAZEM HCL 90MG TABLET PO SCH ×3 (00:49→12:00)
[2019-10-29] MEDS: HYDRALAZINE HCL 25MG TABLET PO SCH ×2 (05:34→14:00)
[2019-10-29] MEDS: BLOOD SUGAR DIAGNOSTIC STRIP TEST SCH ×2 (05:34→11:52)
[2019-10-29] MEDS: INSULIN LISPRO 100 UNITS/ML SUBCUT SCH ×2 (05:34→14:02)
[2019-10-29] MEDS: BRIMONIDINE 0.2% OPHTH DROPS 5ML EACHEYE SCH ×2 (05:37→14:00)
[2019-10-29 07:59] VITALS: BP 102/52
[2019-10-29] MEDS: PANTOPRAZOLE SODIUM 40 MG/VIAL IV SCH (08:57)
[2019-10-29] MEDS: ACETAMINOPHEN 500MG TABLET PO SCH ×2 (08:57→13:02)
[2019-10-29] MEDS: MULTIVITAMINS,THER W-MINERALS TABLET PO SCH (08:57)
[2019-10-29] MEDS: SILVER SULFADIAZINE 1% CREAM 50GM TOP SCH (08:58)
[2019-10-29] MEDS: DORZOLAM/TIMOLOL 2.23/0.68% OPHTH DROPS 10ML BOTHEYE SCH (08:58)
[2019-10-29] MEDS: PREDNISOLONE ACETATE 1% OPHTH DROPS 5ML LEFTEYE SCH (08:58)
[2019-10-29] MEDS: METOPROLOL TARTRATE 25MG TABLET PO SCH (08:58)
[2019-10-29] MEDS: LEVETIRACETAM 500MG PREMIX 100 ML IV SCH (08:58)
[2019-10-29] MEDS: LIDOCAINE 5% PATCH TOP SCH (08:59)
[2019-10-29 12:18] VITALS: BP 103/50
[2019-10-29 12:20] VITALS: BP 103/50
[2019-10-29] MEDS: INSULIN GLARGINE UD 100 UNITS/ML SYR SUBCUT SCH (14:02)
[2019-10-29] MEDS ORDERED: DILT360C27 MT (15:12)
[2019-10-29] MEDS ORDERED: ATOR40TA70 MT (15:12)
[2019-10-29] MEDS ORDERED: METO25TA6 PO (15:12)
[2019-10-29] MEDS ORDERED: HYDR-4134 PO (15:12)
[2019-10-29 15:49] LABS: HEMATOCRIT 33.8 % (36.0-48.0); HEMOGLOBIN 11.3 g/dL (12.0-16.0); MEAN CORPUSCULAR HEMOGLOBIN 29.1 pg (28.0-32.0); MEAN CORPUSCULAR VOLUME 86.9 fL (81.0-99.0); PLATELET 468 x1000/uL (130-400); RED BLOOD CELL COUNT 3.89 mill/uL (4.2-5.4); RED CELL DISTRIBUTION WIDTH 18.6 % (11.6-14.6)
[2019-10-29 15:50] LABS: CHLORIDE 108 mEq/L (98-107)
[2019-10-29] MEDS ORDERED: ACETAMINOPHEN 500MG TABLET PO PRN (16:00)
[2019-10-29] MEDS ORDERED: FAMOTIDINE 20MG/2ML VIAL IV SCH (21:00)
[2019-10-29] MEDS ORDERED: FAMOTIDINE 20MG TABLET PO SCH (21:00)
[2019-10-29] MEDS ORDERED: LEVETIRACETAM 500MG TABLET PO SCH (21:00)
== END 2019-10-29 15:50 | DRG 56 ==
PROVIDERS: ADMIT Physical Medicine & Rehabilitation Spinal Cord Injury Medicine; ATTEND Internal Medicine
DX: I69.354 Hemiplegia and hemiparesis following cerebral infarction affecting left non-dominant side (principal); I60.11 Nontraumatic subarachnoid hemorrhage from right middle cerebral artery; E46 Unspecified protein-calorie malnutrition; G93.40 Encephalopathy, unspecified; I48.92 Unspecified atrial flutter; J98.11 Atelectasis; E87.2 Acidosis; I48.20 Chronic atrial fibrillation, unspecified; N39.0 Urinary tract infection, site not specified; R47.01 Aphasia; I25.10 Atherosclerotic heart disease of native coronary artery without angina pectoris; E11.9 Type 2 diabetes mellitus without complications; I48.0 Paroxysmal atrial fibrillation; R29.810 Facial weakness; R47.81 Slurred speech; R13.10 Dysphagia, unspecified; R47.1 Dysarthria and anarthria; R53.81 Other malaise; R26.9 Unspecified abnormalities of gait and mobility; I10 Essential (primary) hypertension; R74.0 Nonspecific elevation of levels of transaminase and lactic acid dehydrogenase [LDH]; D72.829 Elevated white blood cell count, unspecified; Z68.21 Body mass index [BMI] 21.0-21.9, adult; E78.00 Pure hypercholesterolemia, unspecified; E78.5 Hyperlipidemia, unspecified; J44.9 Chronic obstructive pulmonary disease, unspecified; M06.9 Rheumatoid arthritis, unspecified; Z79.01 Long term (current) use of anticoagulants; Z82.49 Family history of ischemic heart disease and other diseases of the circulatory system; Z83.3 Family history of diabetes mellitus; E55.9 Vitamin D deficiency, unspecified; G89.4 Chronic pain syndrome; M47.812 Spondylosis without myelopathy or radiculopathy, cervical region; D64.9 Anemia, unspecified; Z79.899 Other long term (current) drug therapy
CPT/HCPCS: 36415; 71045; 73521; 80048; 80053; 81003; 82140; 82270; 82306; 82550; 82607; 82728; 82962; 83036; 83540; 83550; 83735; 84100; 84134; 84443; 85025; 85027; 92523; 92610; 93970; 97110; 97112; 97116; 97140; 97162; 97167; 97530; 97535; C9113; J0696; J1815; J1953; J2405; J7121; J8610